=== PATIENT | female | born 1960 | race Caucasian/White ===

== ENCOUNTER 2017-02-11 10:51 | Emergency (ER) | payer MEDICAID ==
[2017-02-11] MEDS ORDERED: Ondansetron 4 MG/2 ML SDV IVPUSH ONE (11:01)
[2017-02-11] MEDS ORDERED: Sodium Chloride 0.9% 10 ML Syringe FLUSH PRN (11:01)
[2017-02-11] MEDS ORDERED: Sodium Chloride 0.9% 1,000 ML IV SCH (11:15)
--- NOTE | 2017-02-11 11:53 | EDM.PDOC ---
ED HPI GENERAL MEDICAL PROBLEM - General Chief Complaint: Syncope Stated Complaint: FELL FAINT Time Seen by Provider: 02/11/17 10:57 Source of Information: Reports: Patient History Limitations: Reports: No Limitations - History of Present Illness INITIAL COMMENTS - FREE TEXT/NARRATIVE: Patient reports having some dizziness over the last several weeks and had an appointment with her primary provider Darlene Mcclendon today, but before she could get there she did suffer full syncopal episode. She remembers walking to her daughter's house and then getting dizzy. After that she remembers waking up on the floor. She denies headache, SOB, chest pain, she does have nausea and vomiting with one episode of emesis here in the ER. She does have HTN, diabetic , depression, essential tremors, migraine headache. Surgical history includes hysterectomy, gall bladder removal, neck surgery, leg surgery. No alcohol, no smoking, does smoke marijuana on a weekly basis. Blood sugar normal on exam. Onset: Gradual Duration: Getting Worse Associated Symptoms: Reports: Nausea/Vomiting - Related Data Allergies Allergy/AdvReac Type Severity Reaction Status Date / Time SHARAD Inhibitors Allergy Cough Verified 02/11/17 12:43 codeine Allergy Headache Verified 02/11/17 12:43 ibuprofen Allergy Nausea and Verified 02/11/17 12:43 Vomiting morphine Allergy Rash Verified 02/11/17 12:43 Home Meds: Home Meds FLUoxetine [PROzac] 1 cap PO DAILY 11/21/13 [History] FLUoxetine [PROzac] 10 mg PO DAILY 11/21/13 [History] [place]-3 Fatty Acids [[place]-3] 2 cap PO BID 11/21/13 [History] Propranolol [Inderal LA 24 Hr] 1.5 tab PO DAILY 11/21/13 [History] SUMAtriptan Succinate [Imitrex] 1 tab PO ASDIRECTED PRN 11/21/13 [History] Valsartan [Diovan] 160 mg PO DAILY 11/21/13 [History] Albuterol [Proair HFA] 2 puff INH Q4HR PRN #1 inhaler 02/11/14 [Rx] Aspirin [Adult Low Dose Aspirin EC] 81 mg PO DAILY 12/24/14 [History] Hydrochlorothiazide 25 mg PO DAILY 12/24/14 [History] Omeprazole 20 mg PO DAILY 12/24/14 [History] atorvaSTATin [Lipitor] 10 mg PO BEDTIME 12/24/14 [History] tiZANidine HCl [Zanaflex] 4 mg PO TID PRN 12/24/14 [History] Past Medical History Other Genitourinary History: cervicalgia Other Neuro History: tremor Other Endocrine/Metabolic History: impaired fasting glucose - Past Surgical History Other HEENT Surgeries/Procedures: eye sx Other GI Surgeries/Procedures: colon polyps Other Neurological Surgeries/Procedures: spine surgery Other Musculoskeletal Surgeries/Procedures:: neck sx x2 Social & Family History - Tobacco Use Smoking Status *Q: Former Smoker Years of Tobacco use: 20 Month Tobacco Last Used: January 10, 2014 - Alcohol Use Days Per Week of Alcohol Use: 0 Number of Drinks Per Day: 0 Total Drinks Per Week: 0 - Recreational Drug Use Recreational Drug Use: No Drug Use in Last 12 Months: No ED ROS GENERAL - Review of Systems Review Of Systems: See Below Constitutional: Reports: No Symptoms HEENT: Reports: No Symptoms Respiratory: Reports: No Symptoms Cardiovascular: Reports: No Symptoms Endocrine: Reports: No Symptoms GI/Abdominal: Reports: Nausea, Vomiting : Reports: No Symptoms Musculoskeletal: Reports: No Symptoms Skin: Reports: No Symptoms Neurological: Reports: Syncope Psychiatric: Reports: No Symptoms Hematologic/Lymphatic: Reports: No Symptoms Immunologic: Reports: No Symptoms - Physical Exam Exam: See Below Exam Limited By: No Limitations General Appearance: Alert, WD/WN, Mild Distress Eye Exam: Bilateral Eye: EOMI, PERRL Ears: Normal TMs Nose: Normal Inspection Throat/Mouth: Normal Inspection, Normal Oropharynx Head Exam: Atraumatic, Normocephalic Neck: Normal Inspection, Supple Respiratory/Chest: No Respiratory Distress, Lungs Clear, Normal Breath Sounds Cardiovascular: Normal Peripheral Pulses, Regular Rate, Rhythm, No Edema GI/Abdominal: Normal Bowel Sounds, Soft, Non-Tender Neuro Exam (Abbreviated): Alert, Oriented, CN II-XII Intact, Normal Cognition, Other (essential tremors noted) Back Exam: Normal Inspection Extremities: Normal Inspection, Normal Range of Motion, Non-Tender, No Pedal Edema, Normal Capillary Refill Psychiatric: Normal Affect, Normal Mood Skin Exam: Warm, Dry, Intact, Normal Color Course - Orders/Labs/Meds Orders: Active Orders 24 hr Category Date Time Status C-REACTIVE PROTEIN [CHEM] Stat Lab 02/11/17 11:01 Ordered CK W CKMB [CHEM] Stat Lab 02/11/17 11:01 Ordered COMPREHENSIVE METABOLIC PN,CMP [CHEM] Stat Lab 02/11/17 11:01 Ordered LACTIC ACID [CHEM] Stat Lab 02/11/17 11:01 Ordered PRO B-TYPE NATRIUR PEPT,BNPPRO [CHEM] Stat Lab 02/11/17 11:01 Ordered TROPONIN I [CHEM] Stat Lab 02/11/17 11:01 Ordered TSH ULTRASENSITIVE [CHEM] Stat Lab 02/11/17 11:01 Ordered Sodium Chloride 0.9% @ 150 MLS/HR (1000ml) Med 02/11/17 11:15 Ordered Sodium Chloride 0.9% [Normal Saline] 1,000 ml IV ASDIRECTED Sodium Chloride 0.9% [Saline Flush] Med 02/11/17 11:01 Ordered 10 ml FLUSH ASDIRECTED PRN Saline Lock Insert [OM.PC] Routine Oth 02/11/17 11:01 Ordered Medication Orders Sodium Chloride (Normal Saline) 1,000 mls @ 150 mls/hr IV ASDIRECTED GABBY Last Admin: 02/11/17 11:34 Dose: 150 mls/hr Sodium Chloride (Saline Flush) 10 ml FLUSH ASDIRECTED PRN PRN Reason: Keep Vein Open Labs: Laboratory Tests 02/11/17 02/11/17 02/11/17 Range/Units 11:05 11:15 11:15 WBC 7.5 (4.0-10.0) x10^3/uL RBC 5.20 (4.00-5.50) x10^6/uL Hgb 14.4 D (12.0-16.0) g/dL Hct 41.9 (33.0-47.0) % MCV 80.6 (78.0-93.0) fL MCH 27.7 (26.0-32.0) pg MCHC 34.4 (32.0-36.0) g/dL RDW Coeff of Mehran 13.7 (10.0-15.0) % Plt Count 235 (130-400) x10^3/uL Neut % (Auto) 45.1 L (50.0-80.0) % Lymph % (Auto) 42.9 (25.0-50.0) % [place] % (Auto) 6.5 (2.0-11.0) % Eos % (Auto) 4.7 H (0.0-4.0) % Baso % (Auto) 0.8 (0.2-1.2) % PT (9.8-11.8) SEC INR (2.0-3.5) D-Dimer, Quantitative 0.53 (<=0.58) mg/LFEU POC Glucose 121 H (74-106) mg/dL 02/11/17 Range/Units 11:15 WBC (4.0-10.0) x10^3/uL RBC (4.00-5.50) x10^6/uL Hgb (12.0-16.0) g/dL Hct (33.0-47.0) % MCV (78.0-93.0) fL MCH (26.0-32.0) pg MCHC (32.0-36.0) g/dL RDW Coeff of Mehran (10.0-15.0) % Plt Count (130-400) x10^3/uL Neut % (Auto) (50.0-80.0) % Lymph % (Auto) (25.0-50.0) % [place] % (Auto) (2.0-11.0) % Eos % (Auto) (0.0-4.0) % Baso % (Auto) (0.2-1.2) % PT 10.1 (9.8-11.8) SEC INR 0.9 L (2.0-3.5) D-Dimer, Quantitative (<=0.58) mg/LFEU POC Glucose (74-106) mg/dL Meds: Medications Generic Name Dose Route Start Last Admin Trade Name Freq PRN Reason Stop Dose Admin Sodium Chloride 1,000 mls @ 150 mls/hr 02/11/17 11:15 02/11/17 11:34 Normal Saline IV 150 mls/hr ASDIRECTED GABBY Administration Sodium Chloride 10 ml 02/11/17 11:01 Saline Flush FLUSH ASDIRECTED PRN Keep Vein Open Discontinued Medications Generic Name Dose Route Start Last Admin Trade Name Freq PRN Reason Stop Dose Admin Ondansetron HCl 4 mg 02/11/17 11:01 02/11/17 11:34 Zofran IVPUSH 02/11/17 11:02 4 mg ONETIME ONE Administration Departure - Departure Time of Disposition: 13:35 Disposition: Home, Self-Care 01 Condition: Good Clinical Impression: Syncope - Discharge Information Instructions: Syncope, [id number], Hypertension, [id number] Forms: ED Department Discharge Additional Instructions: You need to have a cardiology appointment to rule out a cardiac cause of your syncope. Call Darlene's office to see if she will refer you to them for SYNCOPE. Darlene may want to see you first before referring you. Your tests today were negative. We will call you with results of your head CT if there is something within your head causing the syncope. If you have any further feelings of fainting, you need to come to the emergency room right away. Stay hydrated by drinking plenty of water If you have any concerns or questions please call us. - Problem List & Annotations (1) Syncope SNOMED Code(s): 737756461 Code(s): R55 - SYNCOPE AND COLLAPSE Status: Acute Priority: Low Current Visit: Yes Qualifiers: Syncope type: unspecified Qualified Code(s): R55 - Syncope and collapse - Problem List Review Problem List Initiated/Reviewed/Updated: Yes - My Orders Last 24 Hours: My Active Orders 02/11/17 11:01 C-REACTIVE PROTEIN [CHEM] Stat CK W CKMB [CHEM] Stat COMPREHENSIVE METABOLIC PN,CMP [CHEM] Stat LACTIC ACID [CHEM] Stat PRO B-TYPE NATRIUR PEPT,BNPPRO [CHEM] Stat TROPONIN I [CHEM] Stat TSH ULTRASENSITIVE [CHEM] Stat Sodium Chloride 0.9% [Saline Flush] 10 ml FLUSH ASDIRECTED PRN Saline Lock Insert [OM.PC] Routine 02/11/17 11:15 Sodium Chloride 0.9% @ 150 MLS/HR (1000ml) Sodium Chloride 0.9% [Normal Saline] 1,000 ml IV ASDIRECTED - Assessment/Plan Last 24 Hours: My Active Orders 02/11/17 11:01 C-REACTIVE PROTEIN [CHEM] Stat CK W CKMB [CHEM] Stat COMPREHENSIVE METABOLIC PN,CMP [CHEM] Stat LACTIC ACID [CHEM] Stat PRO B-TYPE NATRIUR PEPT,BNPPRO [CHEM] Stat TROPONIN I [CHEM] Stat TSH ULTRASENSITIVE [CHEM] Stat Sodium Chloride 0.9% [Saline Flush] 10 ml FLUSH ASDIRECTED PRN Saline Lock Insert [OM.PC] Routine 02/11/17 11:15 Sodium Chloride 0.9% @ 150 MLS/HR (1000ml) Sodium Chloride 0.9% [Normal Saline] 1,000 ml IV ASDIRECTED Assessment:: Syncope Hypertension Plan: You need to have a cardiology appointment to rule out a cardiac cause of your syncope. Call Darlene's office to see if she will refer you to them for SYNCOPE. Darlene may want to see you first before referring you. Your tests today were negative. We will call you with results of your head CT if there is something within your head causing the syncope. If you have any further feelings of fainting, you need to come to the emergency room right away. Stay hydrated by drinking plenty of water If you have any concerns or questions please call us.
[2017-02-11 12:21] LABS: CHLORIDE,CL 104 mmol/L (98-107); SODIUM,NA 142 mmol/L (136-145)
[2017-02-11 13:13] VITALS: BP 157/89
== END 2017-02-11 13:35 | disposition home or self-care (01) ==
LOC: VM.ED 10:51
DX: R55 Syncope and collapse (principal); I10 Essential (primary) hypertension; E11.9 Type 2 diabetes mellitus without complications; F32.9 Major depressive disorder, single episode, unspecified; G43.909 Migraine, unspecified, not intractable, without status migrainosus; Z88.5 Allergy status to narcotic agent; Z88.6 Allergy status to analgesic agent; Z88.8 Allergy status to other drugs, medicaments and biological substances; Z79.82 Long term (current) use of aspirin; Z79.899 Other long term (current) drug therapy; Z87.891 Personal history of nicotine dependence
CPT/HCPCS: 36415; 70450; 80053; 82550; 82962; 83605; 83735; 83880; 84443; 84484; 85025; 85379; 85610; 86140; 93005; 96360; 96361; 99285; J2405; J7030

== ENCOUNTER 2017-09-15 09:53 | Day surgery (SDC) | payer MEDICAID ==
[~2017-09-15 09:53] MED LIST: Lactated Ringers 1,000 ML IV SCH
[2017-09-15] MEDS ORDERED: fentaNYL 100 MCG/2 ML SDV ONE (12:41)
[2017-09-15] MEDS ORDERED: Propofol 200 MG/20 ML SDV ONE (12:41)
[2017-09-15] MEDS ORDERED: Midazolam 1 MG/ML 2 ML SDV ONE (12:54)
[2017-09-15 14:34] VITALS: BP 127/77
--- NOTE | 2017-09-15 21:18 | OR ---
COLONOSCOPY REPORT DATE OF SURGERY: 09/15/2017. REFERRING PROVIDER: Darlene Mcclendon PA-C. PRE-OPERATIVE DIAGNOSES: 1. Recent rectal bleeding on three separate occasions, most recently about one month ago. 2. History of colon polyps. Last colonoscopy on 12/26/2014 revealed seven tiny polyps, which were removed. A year prior to this, she had a larger polyp near the hepatic flexure, which was tattooed and removed. POST-OPERATIVE DIAGNOSES: 1. Several tiny sigmoid polyps were present, which appeared hyperplastic in nature. a. The 2-mm polyp x2 at 30 cm was removed with cold forceps. b. The 2-mm polyp x2 at about 20 cm was removed with cold forceps. 2. External hemorrhoidal skin tags, not acutely inflamed. PROCEDURE: Colonoscopy with polypectomy x4 using cold forceps. SURGEON: Kiko Smith M.D. ANESTHESIA: Monitored anesthesia care. BOWEL PREP: Good. DESCRIPTION OF PROCEDURE: Alicja is a 56-year-old female, who was brought to the endoscopy suite after discussing risks and benefits of the procedure. Informed consent was obtained for conscious sedation and colonoscopy with or without biopsy and/or polypectomy. We also discussed possibility of missed lesions. Pre-procedure exam was unremarkable. IV, oxygen, and monitors were placed. The patient was placed in the left lateral decubitus position. Sedation was administered and a digital rectal exam was performed, and did reveal some external hemorrhoidal skin tags, not acutely inflamed. Colonoscope was passed into the rectum and slowly advanced all the way to the cecum. Cecum was viewed and photographed. The colonoscope was slowly withdrawn and the mucosa was closed observed in a direct circumferential manner. At the distal ascending colon near the hepatic flexure, there was noted to be a previous tattooed site without any residual polypoid tissue or masses nor any inflammation. This was photographed. The transverse colon was unremarkable. The descending colon was unremarkable. The sigmoid colon, especially from 20 cm to 30 cm revealed several tiny hyperplastic- appearing polyps. Four of these were removed using cold forceps. Retroflexion was performed. Rectal mucosa was unremarkable. Scope was removed. The patient tolerated the procedure well. The patient was monitored until that baseline status. Discharge instructions were reviewed and the patient was discharged in good condition. COMPLICATIONS: None. TOTAL TIME: 22 minutes. ESTIMATED BLOOD LOSS: About 1 mL. RECOMMENDATIONS/FOLLOW-UP: We will await results of pathology report to determine ideal followup interval. We would like to kindly thank Darlene Mcclendon for this referral. DMB: 09/15/2017 14:02:51 MODL: 09/15/2017 21:09:29 /[id number]
== END 2017-09-15 14:37 | disposition home or self-care (01) ==
LOC: VM.SDS 09:53
PROVIDERS: ATTEND Family Medicine
DX: K63.5 Polyp of colon (principal); K62.5 Hemorrhage of anus and rectum; Z86.010 Personal history of colon polyps; K64.4 Residual hemorrhoidal skin tags; F33.1 Major depressive disorder, recurrent, moderate; F41.1 Generalized anxiety disorder; E11.9 Type 2 diabetes mellitus without complications; I10 Essential (primary) hypertension; E78.00 Pure hypercholesterolemia, unspecified; R25.1 Tremor, unspecified; Z87.891 Personal history of nicotine dependence; Z79.899 Other long term (current) drug therapy; Z90.49 Acquired absence of other specified parts of digestive tract; Z98.890 Other specified postprocedural states
CPT/HCPCS: 45380; 82962; J2250; J2704; J3010; J7120

== ENCOUNTER 2017-12-17 16:55 | Emergency (ER) | payer MEDICAID ==
[2017-12-17 17:10] VITALS: BP 143/67
--- NOTE | 2017-12-17 18:23 | EDM.PDOC ---
ED HPI GENERAL MEDICAL PROBLEM - General Chief Complaint: Lower Extremity Injury/Pain Stated Complaint: right ankle injury Time Seen by Provider: 12/17/17 17:07 Source of Information: Reports: Patient History Limitations: Reports: No Limitations - History of Present Illness INITIAL COMMENTS - FREE TEXT/NARRATIVE: Pt. states that she was walking down the sidewalk and twisted her R ankle. Denies any injury other than what is isolated to the R lateral ankle. No paresthesia distal to the area of injury. No pain proximal to the R lateral ankle. No knee or upper leg pain. Did not strike her head. Location: Reports: Lower Extremity, Right Quality: Reports: Dull Treatments FANCY WIRE DRAWER: Reports: Cold Therapy right lateral ankle Pain Score (Numeric/FACES): 7 - Related Data Allergies Allergy/AdvReac Type Severity Reaction Status Date / Time SHARAD Inhibitors Allergy Cough Verified 12/17/17 17:07 codeine Allergy Headache Verified 12/17/17 17:07 ibuprofen Allergy Nausea and Verified 12/17/17 17:07 Vomiting morphine Allergy Rash Verified 12/17/17 17:07 Home Meds: Home Meds [place]-3 Fatty Acids [[place]-3] 1,000 mg PO BID 11/21/13 [History] Propranolol [Inderal LA 24 Hr] 160 mg PO DAILY 11/21/13 [History] SUMAtriptan Succinate [Imitrex] 1 tab PO ASDIRECTED PRN 11/21/13 [History] Valsartan [Diovan] 80 mg PO DAILY 11/21/13 [History] Aspirin [Adult Low Dose Aspirin EC] 81 mg PO DAILY 12/24/14 [History] Hydrochlorothiazide 12.5 mg PO DAILY 12/24/14 [History] Omeprazole 20 mg PO DAILY 12/24/14 [History] atorvaSTATin [Lipitor] 10 mg PO BEDTIME 12/24/14 [History] tiZANidine HCl [Zanaflex] 4 mg PO TID PRN 12/24/14 [History] Primidone [Mysoline] 100 mg PO BID 09/07/17 [History] Vortioxetine Hydrobromide [Trintellix] 10 mg PO DAILY 09/07/17 [History] metFORMIN [Glucophage XR] 500 mg PO BID 09/07/17 [History] Past Medical History HEENT History: Reports: Cataract Cardiovascular History: Reports: High Cholesterol, Hypertension, Other (See Below) Other Cardiovascular History: palpitations Gastrointestinal History: Reports: Colon Polyp, Other (See Below) Other Gastrointestinal History: bright red rectal bleeding. hx of h pylori Other Genitourinary History: cervicalgia Musculoskeletal History: Reports: Back Pain, Chronic Neurological History: Reports: Migraines Other Neuro History: tremor Psychiatric History: Reports: Anxiety, Bipolar, Depression, Other (See Below) Other Psychiatric History: insomnia. daytime somnolence Endocrine/Metabolic History: Reports: Diabetes, Type II Other Endocrine/Metabolic History: impaired fasting glucose - Past Surgical History HEENT Surgical History: Reports: Eye Surgery Other HEENT Surgeries/Procedures: eye sx GI Surgical History: Reports: Cholecystectomy, Colonoscopy Other GI Surgeries/Procedures: colon polyps Female Surgical History: Reports: Hysterectomy, Tubal Ligation Other Neurological Surgeries/Procedures: spine surgery Other Musculoskeletal Surgeries/Procedures:: neck sx x2. trigger finger release Oncologic Surgical History: Reports: Biopsy of Breast Social & Family History - Tobacco Use Smoking Status *Q: Former Smoker Used Tobacco, but Quit: Yes Month/Year Tobacco Last Used: 2013 - Recreational Drug Use Recreational Drug Use: Yes Drug Use in Last 12 Months: Yes Recreational Drug Type: Reports: Marijuana/Hashish Recreational Drug Use Frequency: Socially Review of Systems - Review of Systems Review Of Systems: See Below Constitutional: Reports: No Symptoms Musculoskeletal: Reports: Leg Pain, Joint Pain (R lateral ankle.) Skin: Reports: No Symptoms Neurological: Reports: No Symptoms ED EXAM, GENERAL - Physical Exam Exam: See Below Exam Limited By: No Limitations General Appearance: Alert, WD/WN, No Apparent Distress Throat/Mouth: Normal Inspection, Normal Lips, Normal Teeth, Normal Gums, Normal Oropharynx, Normal Voice, No Airway Compromise Head: Atraumatic, Normocephalic Neck: Normal Inspection, Supple, Non-Tender, Full Range of Motion Respiratory/Chest: No Respiratory Distress Peripheral Pulses: 4+: Posterior Tibial (L), Posterior Tibial (R), Dorsalis Pedis (L), Dorsalis Pedis (R) Extremities: Leg Pain, Limited Range of Motion, Other (swelling to lateral aspect of R ankle) Course - Vital Signs Last Recorded V/S: Last Vital Signs Temp 37.3 C 12/17/17 17:07 Pulse 72 12/17/17 17:07 Resp 18 12/17/17 17:07 BP 143/67 H 12/17/17 17:07 Pulse Ox 93 L 12/17/17 17:07 - Orders/Labs/Meds Orders: Active Orders 24 hr Category Date Time Status Ankle 2V Rt [CR] Stat Exams 12/17/17 17:22 Taken - Radiology Interpretation Free Text/Narrative:: plain film radiographs of the ankle were negative. Departure - Departure Time of Disposition: 16:15 Disposition: Home, Self-Care 01 Clinical Impression: Ankle sprain - Discharge Information Instructions: Ankle Sprain, [id number] Referrals: Darlene Mcclendon PA-C [Primary Care Provider] - Forms: ED Department Discharge Additional Instructions: Use stirrup splint and sharad wrap for the next several days. Ice ankle for 15 min every 1-2 hours. Use crutches to help with getting around. Elevate ankle above heart as much as possible. It is important to get it has high as possible. - My Orders Last 24 Hours: My Active Orders 12/17/17 17:22 Ankle 2V Rt [CR] Stat - Assessment/Plan Last 24 Hours: My Active Orders 12/17/17 17:22 Ankle 2V Rt [CR] Stat
== END 2017-12-17 18:20 | disposition home or self-care (01) ==
LOC: VM.ED 16:55
DX: S93.401A Sprain of unspecified ligament of right ankle, initial encounter (principal); I10 Essential (primary) hypertension; E11.9 Type 2 diabetes mellitus without complications; Z88.5 Allergy status to narcotic agent; Z88.8 Allergy status to other drugs, medicaments and biological substances; Z88.6 Allergy status to analgesic agent; Z79.899 Other long term (current) drug therapy; Z87.891 Personal history of nicotine dependence; X50.1XXA Overexertion from prolonged static or awkward postures, initial encounter; Y93.01 Activity, walking, marching and hiking
CPT/HCPCS: 73600-RT; 99283

== ENCOUNTER 2018-10-17 16:12 | Emergency (ER) | payer MEDICAID ==
[2018-10-17] MEDS ORDERED: Ondansetron 4 MG/2 ML SDV IVPUSH ONE (16:31)
[2018-10-17] MEDS ORDERED: Morphine 4 MG/ML Syringe IVPUSH ONE (16:31)
[2018-10-17] MEDS ORDERED: Sodium Chloride 0.9% 10 ML Syringe FLUSH PRN (16:31)
[2018-10-17] MEDS ORDERED: Sodium Chloride 0.9% 1,000 ML IV ONE (16:31)
[2018-10-17 16:55] VITALS: BP 115/86
[2018-10-17 17:02] LABS: CHLORIDE,CL 99 mmol/L (98-107); SODIUM,NA 141 mmol/L (136-145)
[2018-10-17 17:04] LABS: ANION GAP 11.8 mmol/L (10-20)
[2018-10-17] MEDS ORDERED: Iopamidol 612 MG/ML 100 ML Bottle IVPUSH ONE (17:20)
[2018-10-17] MEDS ORDERED: HYDROmorphone 1 MG/ML Syringe IVPUSH ONE (17:36)
[2018-10-17] MEDS ORDERED: Prochlorperazine 10 MG/2 ML SDV IV ONE (18:11)
--- NOTE | 2018-10-17 18:13 | CT ---
[id number] CT/CT Abdomen Pelvis W IV EXAM: CT Abdomen Pelvis W IV CLINICAL DATA: LOWER ABD PAIN COMPARISON STUDY: None. FINDINGS: Lung bases are clear. Generalized hypodensity of the liver consistent with hepatic steatosis. The gallbladder surgically absent. The spleen, pancreas, adrenal glands and kidneys are unremarkable. Differential wall thickening of the rectum with mild fat stranding. The appendix is visualized and appears normal. Colonic diverticulosis without evidence of acute diverticulitis. No lymphadenopathy, free fluid, or pneumoperitoneum. Scattered changes of spondylosis the spine. No fracture or osseous lesion. IMPRESSION: 1. Circumferential wall thickening of the rectum with mild surrounding fat stranding. These findings could be seen with uncomplicated proctitis. Correlate clinically. Abdifatah Tobar DO 10/17/18 1845 Thank you for allowing us to participate in the care of your patient.
--- NOTE | 2018-10-17 18:14 | CR ---
[id number] RAD/RAD Chest PA And Lateral EXAM: RAD Chest PA And Lateral INDICATION: COUGH SOB COMPARISON: None. DISCUSSION: Cardiomediastinal silhouette is normal in size and contour. No infiltrate, effusion, pneumothorax, or edema. IMPRESSION: No acute cardiopulmonary abnormality. Abdifatah Tobar DO 10/17/18 1812 Thank you for allowing us to participate in the care of your patient.
[2018-10-17] MEDS ORDERED: Piperacillin/Tazobactam 3.375 GM in Sodium Chloride 0.9% 100 ML IV ONE (18:23)
[2018-10-17] MEDS ORDERED: Metoclopramide 10 MG/2 ML SDV IVPUSH ONE (18:39)
--- NOTE | 2018-10-18 02:05 | EDM.PDOC ---
ED HPI GENERAL MEDICAL PROBLEM - General Chief Complaint: Abdominal Pain Stated Complaint: ABDOMINAL PAIN Time Seen by Provider: 10/17/18 16:20 Source of Information: Reports: Patient History Limitations: Reports: No Limitations - History of Present Illness INITIAL COMMENTS - FREE TEXT/NARRATIVE: PtElliot presents to ER with complaints of lower abdominal pain, nausea, vomiting, and diarrhea that started earlier today. She states that she is not able to hold down fluids. She complains of weakness and fatigue. She is very chilled but has not been checking her temp at home. She has a history of tremor that are worse tonight since she has been ill. Denies any blood in stools. She states that she is not sexually active and denies intrumentation of her rectum. She denies any trauma. She states that she has had 2 loose stools tonight. Denies and travel outside the [place] recently. She denies any consumption of untreated water. Denies any history of ulcerative colitis or other GI disease. Denies any dysuria, frequency or urgency. She denies any significant shortness of breath. Onset Date: 10/17/18 Location: Reports: Abdomen Associated Symptoms: Reports: Loss of Appetite, Nausea/Vomiting Lower Abdomen Pain Score (Numeric/FACES): 3 - Related Data Allergies Allergy/AdvReac Type Severity Reaction Status Date / Time morphine Allergy Rash Verified 10/17/18 16:49 SHARAD Inhibitors AdvReac Cough Verified 10/17/18 17:30 codeine AdvReac Headache Verified 10/17/18 17:30 ibuprofen AdvReac Nausea and Verified 10/17/18 17:30 Vomiting Home Meds: Home Meds [place]-3 Fatty Acids [[place]-3] 1,000 mg PO BID 11/21/13 [History] Propranolol [Inderal LA 24 Hr] 160 mg PO DAILY 11/21/13 [History] SUMAtriptan Succinate [Imitrex] 1 tab PO ASDIRECTED PRN 11/21/13 [History] Valsartan [Diovan] 80 mg PO DAILY 11/21/13 [History] Aspirin [Adult Low Dose Aspirin EC] 81 mg PO DAILY 12/24/14 [History] Hydrochlorothiazide 12.5 mg PO DAILY 12/24/14 [History] Omeprazole 20 mg PO DAILY 12/24/14 [History] atorvaSTATin [Lipitor] 10 mg PO BEDTIME 12/24/14 [History] tiZANidine HCl [Zanaflex] 4 mg PO TID PRN 12/24/14 [History] Primidone [Mysoline] 100 mg PO BID 09/07/17 [History] Vortioxetine Hydrobromide [Trintellix] 10 mg PO DAILY 09/07/17 [History] metFORMIN [Glucophage XR] 500 mg PO BID 09/07/17 [History] Past Medical History HEENT History: Reports: Cataract Cardiovascular History: Reports: High Cholesterol, Hypertension, Other (See Below) Other Cardiovascular History: palpitations Gastrointestinal History: Reports: Colon Polyp, Other (See Below) Other Gastrointestinal History: bright red rectal bleeding. hx of h pylori Other Genitourinary History: cervicalgia Musculoskeletal History: Reports: Back Pain, Chronic Neurological History: Reports: Migraines Other Neuro History: tremor Psychiatric History: Reports: Anxiety, Bipolar, Depression, Other (See Below) Other Psychiatric History: insomnia. daytime somnolence Endocrine/Metabolic History: Reports: Diabetes, Type II Other Endocrine/Metabolic History: impaired fasting glucose - Past Surgical History HEENT Surgical History: Reports: Eye Surgery Other HEENT Surgeries/Procedures: eye sx GI Surgical History: Reports: Cholecystectomy, Colonoscopy Other GI Surgeries/Procedures: colon polyps Female Surgical History: Reports: Hysterectomy, Tubal Ligation Other Neurological Surgeries/Procedures: spine surgery Other Musculoskeletal Surgeries/Procedures:: neck sx x2. trigger finger release Oncologic Surgical History: Reports: Biopsy of Breast Social & Family History - Tobacco Use Smoking Status *Q: Unknown Ever Smoked - Recreational Drug Use Recreational Drug Use: No ED ROS GENERAL - Review of Systems Review Of Systems: See Below Constitutional: Reports: No Symptoms HEENT: Reports: No Symptoms Respiratory: Reports: No Symptoms Cardiovascular: Reports: No Symptoms Endocrine: Reports: No Symptoms GI/Abdominal: Reports: Abdominal Pain, Diarrhea, Flatus, Nausea, Vomiting. Denies: Bloody Stool, Constipation, Distension, Hematemesis, Hematochezia, Melena, Mucous in Stool : Reports: No Symptoms Musculoskeletal: Reports: No Symptoms Skin: Reports: No Symptoms Neurological: Reports: No Symptoms Psychiatric: Reports: No Symptoms Hematologic/Lymphatic: Reports: No Symptoms ED EXAM, GENERAL - Physical Exam Exam: See Below Exam Limited By: No Limitations General Appearance: Alert, WD/WN, No Apparent Distress Eye Exam: Bilateral Eye: EOMI, PERRL Ears: Normal External Exam, Normal Canal, Hearing Grossly Normal, Normal TMs Ear Exam: Bilateral Ear: Auricle Normal, Canal Normal, TM normal Nose: Normal Inspection, Normal Mucosa, No Blood Throat/Mouth: Normal Inspection, Normal Lips, Normal Teeth, Normal Gums, Normal Oropharynx, Normal Voice, No Airway Compromise Head: Atraumatic, Normocephalic Neck: Normal Inspection, Supple, Non-Tender, Full Range of Motion Respiratory/Chest: No Respiratory Distress, Lungs Clear, Normal Breath Sounds, No Accessory Muscle Use, Chest Non-Tender Cardiovascular: Normal Peripheral Pulses, Regular Rate, Rhythm, No Edema, No Gallop, No JVD, No Murmur, No Rub Peripheral Pulses: 3+: Radial (L) GI/Abdominal: Normal Bowel Sounds, Soft, Guarding, Tender (tender in lower quadrants, particularly on the left). No: No Distention, No Mass, Rigid, Rebound (Female) Exam: Deferred Rectal (Female) Exam: No: Deferred Extremities: Normal Inspection, Normal Range of Motion, Non-Tender, No Pedal Edema, Normal Capillary Refill Neurological: Alert, Oriented, CN II-XII Intact, Normal Cognition, Normal Gait, Normal Reflexes, No Motor/Sensory Deficits Psychiatric: Normal Affect, Normal Mood Skin Exam: Warm, Dry, Intact, Normal Color Course - Vital Signs Last Recorded V/S: Last Vital Signs Temp 35.6 C 10/17/18 16:15 Pulse 75 10/17/18 16:15 Resp 18 10/17/18 16:15 BP 115/86 10/17/18 16:15 Pulse Ox 98 10/17/18 16:15 - Orders/Labs/Meds Orders: Active Orders 24 hr Category Date Time Status Peripheral IV Insertion Adult [OM.PC] Routine Oth 10/17/18 16:31 Ordered Labs: Laboratory Tests 10/17/18 10/17/18 10/17/18 Range/Units 16:25 16:25 16:25 WBC 8.0 (4.0-10.0) x10^3/uL RBC 5.72 H (4.00-5.50) x10^6/uL Hgb 15.5 (12.0-16.0) g/dL Hct 45.9 (33.0-47.0) % MCV 80.2 (78.0-93.0) fL MCH 27.1 (26.0-32.0) pg MCHC 33.8 (32.0-36.0) g/dL RDW Coeff of Mehran 13.6 (10.0-15.0) % Plt Count 329 D (130-400) x10^3/uL Neut % (Auto) 39.2 L (50.0-80.0) % Lymph % (Auto) 49.5 (25.0-50.0) % [place] % (Auto) 7.5 (2.0-11.0) % Eos % (Auto) 3.1 (0.0-4.0) % Baso % (Auto) 0.7 (0.2-1.2) % PT 10.4 (10.0-12.8) SEC INR 0.9 L (2.0-3.5) Sodium 141 (136-145) mmol/L Potassium 3.8 (3.5-5.1) mmol/L Chloride 99 (98-107) mmol/L Carbon Dioxide 34 H (21-32) mmol/L Anion Gap 11.8 (10-20) mmol/L BUN 13 (7-18) mg/dL Creatinine 0.9 (0.55-1.02) mg/dL Est Cr Clr Drug Dosing 55.68 mL/min Estimated GFR (MDRD) > 60 Glucose 134 H (74-106) mg/dL Lactic Acid (0.4-2.0) mmol/L Calcium 9.7 (8.5-10.1) mg/dL Corrected Calcium 9.62 (8.5-10.1) mg/dL Phosphorus 3.5 (2.6-4.7) mg/dL Magnesium 1.8 (1.8-2.4) mg/dL Total Bilirubin 0.4 (0.2-1.0) mg/dL AST 29 (15-37) U/L ALT 59 (14-59) U/L Alkaline Phosphatase 81 (46-116) U/L C-Reactive Protein < 0.2 (<=0.9) mg/dL Total Protein 7.9 (6.4-8.2) g/dL Albumin 4.1 (3.4-5.0) g/dL Globulin 3.8 Albumin/Globulin Ratio 1.08 Urine Color (YELLOW) Urine Appearance (CLEAR) Urine pH (5.0-8.0) Ur Specific [place] Urine Protein (NEGATIVE) mg/dL Urine Glucose (UA) (NEGATIVE) mg/dL Urine Ketones (NEGATIVE) mg/dL Urine Occult Blood (NEGATIVE) Urine Nitrite (NEGATIVE) Urine Bilirubin (NEGATIVE) Urine Urobilinogen (0.2) EU/dL Ur Leukocyte Esterase (NEGATIVE) Urine RBC (NOT SEEN) /HPF Urine WBC (NOT SEEN) /HPF Ur Squamous Epith Cells (NEGATIVE) /HPF Urine Bacteria (NEGATIVE) /HPF Urine Mucus (NEGATIVE) /LPF 10/17/18 10/17/18 Range/Units 16:25 16:25 WBC (4.0-10.0) x10^3/uL RBC (4.00-5.50) x10^6/uL Hgb (12.0-16.0) g/dL Hct (33.0-47.0) % MCV (78.0-93.0) fL MCH (26.0-32.0) pg MCHC (32.0-36.0) g/dL RDW Coeff of Mehran (10.0-15.0) % Plt Count (130-400) x10^3/uL Neut % (Auto) (50.0-80.0) % Lymph % (Auto) (25.0-50.0) % [place] % (Auto) (2.0-11.0) % Eos % (Auto) (0.0-4.0) % Baso % (Auto) (0.2-1.2) % PT (10.0-12.8) SEC INR (2.0-3.5) Sodium (136-145) mmol/L Potassium (3.5-5.1) mmol/L Chloride (98-107) mmol/L Carbon Dioxide (21-32) mmol/L Anion Gap (10-20) mmol/L BUN (7-18) mg/dL Creatinine (0.55-1.02) mg/dL Est Cr Clr Drug Dosing mL/min Estimated GFR (MDRD) Glucose (74-106) mg/dL Lactic Acid 1.7 (0.4-2.0) mmol/L Calcium (8.5-10.1) mg/dL Corrected Calcium (8.5-10.1) mg/dL Phosphorus (2.6-4.7) mg/dL Magnesium (1.8-2.4) mg/dL Total Bilirubin (0.2-1.0) mg/dL AST (15-37) U/L ALT (14-59) U/L Alkaline Phosphatase (46-116) U/L C-Reactive Protein (<=0.9) mg/dL Total Protein (6.4-8.2) g/dL Albumin (3.4-5.0) g/dL Globulin Albumin/Globulin Ratio Urine Color Yellow (YELLOW) Urine Appearance Clear (CLEAR) Urine pH 6.5 (5.0-8.0) Ur Specific [place] 1.020 Urine Protein 30 H (NEGATIVE) mg/dL Urine Glucose (UA) Negative (NEGATIVE) mg/dL Urine Ketones Trace H (NEGATIVE) mg/dL Urine Occult Blood Trace-intact H (NEGATIVE) Urine Nitrite Negative (NEGATIVE) Urine Bilirubin Small H (NEGATIVE) Urine Urobilinogen 0.2 (0.2) EU/dL Ur Leukocyte Esterase Negative (NEGATIVE) Urine RBC 0-5 (NOT SEEN) /HPF Urine WBC 0-5 (NOT SEEN) /HPF Ur Squamous Epith Cells Moderate H (NEGATIVE) /HPF Urine Bacteria Not seen (NEGATIVE) /HPF Urine Mucus Few H (NEGATIVE) /LPF Meds: Medications Discontinued Medications Generic Name Dose Route Start Last Admin Trade Name Freq PRN Reason Stop Dose Admin Hydromorphone HCl 0.5 mg 10/17/18 17:36 10/17/18 17:40 Dilaudid IVPUSH 10/17/18 17:37 0.5 mg ONETIME ONE Administration Sodium Chloride 1,000 mls @ 1,000 mls/hr 10/17/18 16:31 10/17/18 16:36 Normal Saline IV 10/17/18 17:30 1,000 mls/hr .BOLUS ONE Administration Piperacillin Sod/Tazobactam 100 mls @ 200 mls/hr 10/17/18 18:23 10/17/18 18: 37 Sod 3.375 gm/ Sodium Chloride IV 10/17/18 18:52 200 mls/hr STAT ONE Administration Iopamidol 100 ml 10/17/18 17:20 10/17/18 17:27 Isovue-300 (61%) IVPUSH 10/17/18 17:21 100 ml ONETIME ONE Administration Metoclopramide HCl 5 mg 10/17/18 18:39 10/17/18 19:11 Reglan IVPUSH 10/17/18 18:40 5 mg ONETIME ONE Administration Morphine Sulfate 4 mg 10/17/18 16:31 10/17/18 19:37 Morphine IVPUSH 10/17/18 16:32 Not Given ONETIME ONE Ondansetron HCl 4 mg 10/17/18 16:31 10/17/18 16:38 Zofran IVPUSH 10/17/18 16:32 4 mg ONETIME ONE Administration Prochlorperazine Edisylate 5 mg 10/17/18 18:11 Compazine IV 10/17/18 18:12 ONETIME ONE Sodium Chloride 10 ml 10/17/18 16:31 Saline Flush FLUSH ASDIRECTED PRN Keep Vein Open - Radiology Interpretation Free Text/Narrative:: CT abdomen and pelvis with IV contast obtained showing wall thickening and some stranding of the rectum consistent with possible proctitis. No other etiology for discomfort noted. There was evidence with diverticulosis without diverticulitis. Appendix normal as visualized. - Re-Assessments/Exams Free Text/Narrative Re-Assessment/Exam: Pt. was given a liter of normal saline, dilaudid 0.5mg IV, and zofran 4 mg IV. Reported significant improvement in discomfort. She was still nauseated so was given 5 mg reglan IV. On obtaining her CT result she was given zosyn 3.375gm IV. She remained stable in my care in ER. Departure - Departure Time of Disposition: 19:32 Disposition: Home, Self-Care 01 Clinical Impression: Gastroenteritis, Proctitis - Discharge Information Instructions: Proctitis Referrals: Darlene Mcclendon PA-C [Primary Care Provider] - Forms: ED Department Discharge Additional Instructions: Flagyl 500mg 1 three times daily for 10 days Cipro 500mg 1 twice daily for 10 days Drink plenty of fluids Recheck in clinic in 10-14 days - Problem List Review Problem List Initiated/Reviewed/Updated: Yes - My Orders Last 24 Hours: My Active Orders 10/17/18 16:31 Peripheral IV Insertion Adult [OM.PC] Routine - Assessment/Plan Last 24 Hours: My Active Orders 10/17/18 16:31 Peripheral IV Insertion Adult [OM.PC] Routine Plan: This illness is likely viral in origin, but given her radiographic finding we will start her on antibiotics. Flagyl 500mg 1 three times daily for 10 days Cipro 500mg 1 twice daily for 10 days Drink plenty of fluids Recheck in clinic in 10-14 days
== END 2018-10-17 19:32 | disposition home or self-care (01) ==
LOC: VM.ED 16:12
DX: K52.9 Noninfective gastroenteritis and colitis, unspecified (principal); K62.89 Other specified diseases of anus and rectum; I10 Essential (primary) hypertension; E11.9 Type 2 diabetes mellitus without complications; Z88.5 Allergy status to narcotic agent; Z88.8 Allergy status to other drugs, medicaments and biological substances; Z79.899 Other long term (current) drug therapy; Z79.82 Long term (current) use of aspirin
CPT/HCPCS: 36415; 71046; 74177; 80053; 81001; 83605; 83735; 84100; 85025; 85610; 86140; 96361; 96365; 96375; 99284; J1170; J2405; J2543; J2765; J7030; J7050; Q9967

== ENCOUNTER 2018-10-18 16:20 | Emergency (ER) | payer MEDICAID ==
--- NOTE | 2018-10-18 16:24 | EDM.PDOC ---
ED HPI GENERAL MEDICAL PROBLEM - General Chief Complaint: Abdominal Pain Stated Complaint: ABDOMINAL PAIN,DIARRHEA,VOMITING Time Seen by Provider: 10/18/18 16:22 Source of Information: Reports: Patient, Old Records, Provider, RN, RN Notes Reviewed History Limitations: Reports: No Limitations - History of Present Illness INITIAL COMMENTS - FREE TEXT/NARRATIVE: Patient was sent to this ED after being seen in the clinic as Aniket for the evaluation of abdominal pain. Patient was seen in this ED last evening for abdominal pain, N/V, and diarrhea. CT of Abd/Pelvis showed possible uncomplicated proctitis. Patient was appropriately care for and was started on IV abx therapy and sent home on PO antibiotics. 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 She presented to the clinic today and it was felt the patient was too sick for the clinic and needed possible transfer to a higher level of care. Patient states her pain is in the lower abdominal. She had 3 bile emesis today and continues feeling nauseated. She has not been able to hold down po fluids. No fevers or chills. Denies any chest pain or SOB. Patient is opioid naive. She feels somewhat week. Otherwise, no complaints. Lower Abdomen Pain Score (Numeric/FACES): 7 - Related Data Allergies Allergy/AdvReac Type Severity Reaction Status Date / Time morphine Allergy Rash Verified 10/18/18 17:28 SHARAD Inhibitors AdvReac Cough Verified 10/18/18 17:28 codeine AdvReac Headache Verified 10/18/18 17:28 ibuprofen AdvReac Nausea and Verified 10/18/18 17:28 Vomiting Home Meds: Home Meds [place]-3 Fatty Acids [[place]-3] 1,000 mg PO BID 11/21/13 [History] Propranolol [Inderal LA 24 Hr] 160 mg PO DAILY 11/21/13 [History] SUMAtriptan Succinate [Imitrex] 1 tab PO ASDIRECTED PRN 11/21/13 [History] Valsartan [Diovan] 80 mg PO DAILY 11/21/13 [History] Aspirin [Adult Low Dose Aspirin EC] 81 mg PO DAILY 12/24/14 [History] Hydrochlorothiazide 12.5 mg PO DAILY 12/24/14 [History] Omeprazole 20 mg PO DAILY 12/24/14 [History] atorvaSTATin [Lipitor] 10 mg PO BEDTIME 12/24/14 [History] tiZANidine HCl [Zanaflex] 4 mg PO TID PRN 12/24/14 [History] Primidone [Mysoline] 100 mg PO BID 09/07/17 [History] Vortioxetine Hydrobromide [Trintellix] 10 mg PO DAILY 09/07/17 [History] metFORMIN [Glucophage XR] 500 mg PO BID 09/07/17 [History] Past Medical History HEENT History: Reports: Cataract Cardiovascular History: Reports: High Cholesterol, Hypertension, Other (See Below) Other Cardiovascular History: palpitations Gastrointestinal History: Reports: Colon Polyp, Other (See Below) Other Gastrointestinal History: bright red rectal bleeding. hx of h pylori Other Genitourinary History: cervicalgia Musculoskeletal History: Reports: Back Pain, Chronic Neurological History: Reports: Migraines Other Neuro History: tremor Psychiatric History: Reports: Anxiety, Bipolar, Depression, Other (See Below) Other Psychiatric History: insomnia. daytime somnolence Endocrine/Metabolic History: Reports: Diabetes, Type II Other Endocrine/Metabolic History: impaired fasting glucose - Past Surgical History HEENT Surgical History: Reports: Eye Surgery Other HEENT Surgeries/Procedures: eye sx GI Surgical History: Reports: Cholecystectomy, Colonoscopy Other GI Surgeries/Procedures: colon polyps Female Surgical History: Reports: Hysterectomy, Tubal Ligation Other Neurological Surgeries/Procedures: spine surgery Other Musculoskeletal Surgeries/Procedures:: neck sx x2. trigger finger release Oncologic Surgical History: Reports: Biopsy of Breast ED ROS GENERAL - Review of Systems Review Of Systems: See Below Constitutional: Denies: Fever, Chills Respiratory: Denies: Shortness of Breath, Cough Cardiovascular: Denies: Chest Pain, Palpitations GI/Abdominal: Reports: Abdominal Pain, Diarrhea, Nausea, Vomiting Skin: Reports: No Symptoms Neurological: Reports: No Symptoms ED EXAM, GI/ABD - Physical Exam Exam: See Below Exam Limited By: No Limitations General Appearance: Alert, No Apparent Distress Respiratory/Chest: No Respiratory Distress, Lungs Clear, Normal Breath Sounds Cardiovascular: Normal Peripheral Pulses, Regular Rate, Rhythm GI/Abdominal Exam: Tender (lower bilateral), Abnormal Bowel Sounds (Hyperactive) . No: Guarding, Rigid, Rebound Neurological: Alert, Oriented Skin Exam: Warm, Dry, Intact, Normal Color Course - Vital Signs Last Recorded V/S: Last Vital Signs Temp 36.7 C 10/18/18 16:25 Pulse 64 10/18/18 16:25 Resp 18 10/18/18 16:25 BP 161/88 H 10/18/18 16:25 Pulse Ox 95 10/18/18 16:25 - Orders/Labs/Meds Orders: Active Orders 24 hr Category Date Time Status LACTIC ACID [CHEM] Stat Lab 10/18/18 16:47 Received Sodium Chloride 0.9% [Saline Flush] Med 10/18/18 16:32 Active 10 ml FLUSH ASDIRECTED PRN Peripheral IV Insertion Adult [OM.PC] Routine Oth 10/18/18 16:32 Ordered Medication Orders Sodium Chloride (Saline Flush) 10 ml FLUSH ASDIRECTED PRN PRN Reason: Keep Vein Open Labs: Laboratory Tests 10/18/18 Range/Units 16:47 Amylase 63 (25-115) U/L Meds: Medications Generic Name Dose Route Start Last Admin Trade Name Freq PRN Reason Stop Dose Admin Sodium Chloride 10 ml 10/18/18 16:32 Saline Flush FLUSH ASDIRECTED PRN Keep Vein Open Discontinued Medications Generic Name Dose Route Start Last Admin Trade Name Freq PRN Reason Stop Dose Admin Hydromorphone HCl 0.5 mg 10/18/18 16:38 10/18/18 16:49 Dilaudid IVPUSH 10/18/18 16:39 0.5 mg ONETIME ONE Administration Sodium Chloride 1,000 mls @ 999 mls/hr 10/18/18 16:32 10/18/18 16:38 Normal Saline IV 10/18/18 17:32 999 mls/hr ONETIME ONE Administration Iopamidol 100 ml 10/18/18 16:45 10/18/18 16:55 Isovue-300 (61%) IVPUSH 10/18/18 16:46 100 ml ONETIME ONE Administration Morphine Sulfate 4 mg 10/18/18 16:32 Morphine IVPUSH 10/18/18 16:33 ONETIME ONE Prochlorperazine Edisylate 10 mg 10/18/18 16:38 10/18/18 16:46 Compazine IV 10/18/18 16:39 10 mg ONETIME ONE Administration - Radiology Interpretation Free Text/Narrative:: CT Abd/Pelvis with IV contrast: Nonspecific mild small bowel distention See scanned report in EMR for details CT Results Date: 05/08/19 CT Results Time: 17:28 Departure - Departure Time of Disposition: 17:51 Disposition: Refer to Observation Condition: Good Clinical Impression: Dehydration Abdominal pain Qualifiers: Abdominal location: lower abdomen, unspecified Qualified Code(s): R10.30 - Lower abdominal pain, unspecified Nausea & vomiting Qualifiers: Vomiting type: bilious vomiting Qualified Code(s): R11.14 - Bilious vomiting - Discharge Information *PRESCRIPTION DRUG MONITORING PROGRAM REVIEWED*: Not Applicable *COPY OF PRESCRIPTION DRUG MONITORING REPORT IN PATIENT EDUARDO: Not Applicable ED Communication - ED Communication Date/Time Date: 10/18/18 Time Called: 17:47 - Discussed Case With (1) Discussed Case With (1): Outpatient Provider Person/s Notified (1): Cayden Grant - Problem List & Annotations (1) Abdominal pain SNOMED Code(s): 21146170 Code(s): R10.9 - UNSPECIFIED ABDOMINAL PAIN Status: Acute Priority: Medium Current Visit: Yes Onset Date: ~10/17/18 Qualifiers: Abdominal location: lower abdomen, unspecified Qualified Code(s): R10.30 - Lower abdominal pain, unspecified (2) Dehydration SNOMED Code(s): 24345290 Code(s): E86.0 - DEHYDRATION Status: Acute Priority: Medium Current Visit: Yes Onset Date: ~10/18/18 (3) Nausea & vomiting SNOMED Code(s): 28336180 Code(s): R11.2 - NAUSEA WITH VOMITING, UNSPECIFIED Status: Acute Current Visit: Yes Onset Date: ~10/18/18 Qualifiers: Vomiting type: bilious vomiting Qualified Code(s): R11.14 - Bilious vomiting - Problem List Review Problem List Initiated/Reviewed/Updated: Yes - My Orders Last 24 Hours: My Active Orders 10/18/18 16:32 Sodium Chloride 0.9% [Saline Flush] 10 ml FLUSH ASDIRECTED PRN Peripheral IV Insertion Adult [OM.PC] Routine 10/18/18 16:47 LACTIC ACID [CHEM] Stat - Assessment/Plan Admission H&P: Please use this note as an admission H&P Last 24 Hours: My Active Orders 10/18/18 16:32 Sodium Chloride 0.9% [Saline Flush] 10 ml FLUSH ASDIRECTED PRN Peripheral IV Insertion Adult [OM.PC] Routine 10/18/18 16:47 LACTIC ACID [CHEM] Stat Assessment:: Abdominal Pain N/V Diarrhea Plan: Case discussed with Dr. Grant. Patient will be admitted observation. Will start IV Cipro and IV Flagyl. IVF for hydration. IV antiemetics and pain meds. No concerns for PT/OT. Patient is a full code. I do not anticipate patient will be admitted >48 hours. Patient does wish to be transferred to a higher level of care. Patient agrees with admission and wishes to proceed.
[2018-10-18] MEDS ORDERED: Sodium Chloride 0.9% 10 ML Syringe FLUSH PRN (16:32)
[2018-10-18] MEDS ORDERED: Morphine 4 MG/ML Syringe IVPUSH ONE (16:32)
[2018-10-18] MEDS: Sodium Chloride 0.9% 1,000 ML IV ONE (16:38)
[2018-10-18] MEDS: Prochlorperazine 10 MG/2 ML SDV IV ONE (16:46)
[2018-10-18] MEDS: HYDROmorphone 1 MG/ML Syringe IVPUSH ONE (16:49)
[2018-10-18] MEDS: Iopamidol 612 MG/ML 100 ML Bottle IVPUSH ONE (16:55)
--- NOTE | 2018-10-18 17:32 | CT ---
[id number] CT/CT Abdomen Pelvis W IV EXAM: CT Abdomen Pelvis W IV CLINICAL DATA: LOWER ABDOMINAL PAIN COMPARISON: CORRELATION IS MADE WITH THE EXAM OF OCTOBER 17, 2018. FINDINGS: There is nonspecific mild small bowel dilatation. There is uncomplicated moderate colonic diverticular disease. The uterus and ovaries appear to have been removed. There is no evidence of appendicitis. The appendix appears normal. There is no free air or free fluid. The gallbladder has been removed. The liver and spleen, kidneys and adrenals, pancreas and aorta show no acute abnormalities. IMPRESSION: NONSPECIFIC MILD SMALL BOWEL DISTENTION. Macario Lee MD 10/18/18 [id number] Thank you for allowing us to participate in the care of your patient.
[2018-10-18 17:38] VITALS: BP 161/88
== END 2018-10-18 18:00 | disposition other institution (70) ==
LOC: VM.ED 16:20
DX: E86.0 Dehydration (principal); R10.30 Lower abdominal pain, unspecified; R11.2 Nausea with vomiting, unspecified; I10 Essential (primary) hypertension; E78.00 Pure hypercholesterolemia, unspecified; F31.9 Bipolar disorder, unspecified; F41.9 Anxiety disorder, unspecified; Z79.82 Long term (current) use of aspirin; Z88.5 Allergy status to narcotic agent; Z88.8 Allergy status to other drugs, medicaments and biological substances; Z88.6 Allergy status to analgesic agent; Z79.899 Other long term (current) drug therapy
CPT/HCPCS: 36415; 74177; 82150; 83605; 96361; 96374; 96375; 99284-25; J0780; J1170; J7030; Q9967

== ENCOUNTER 2018-10-18 17:46 | Observation (INO) | payer MEDICAID ==
--- NOTE | 2018-10-18 17:32 | CT ---
[id number] CT/CT Abdomen Pelvis W IV EXAM: CT Abdomen Pelvis W IV CLINICAL DATA: LOWER ABDOMINAL PAIN COMPARISON: CORRELATION IS MADE WITH THE EXAM OF OCTOBER 17, 2018. FINDINGS: There is nonspecific mild small bowel dilatation. There is uncomplicated moderate colonic diverticular disease. The uterus and ovaries appear to have been removed. There is no evidence of appendicitis. The appendix appears normal. There is no free air or free fluid. The gallbladder has been removed. The liver and spleen, kidneys and adrenals, pancreas and aorta show no acute abnormalities. IMPRESSION: NONSPECIFIC MILD SMALL BOWEL DISTENTION. Macario Lee MD 10/18/18 [id number] Thank you for allowing us to participate in the care of your patient.
[~2018-10-18 17:46] MED LIST changes: +HYDROmorphone 1 MG/ML Syringe ONE; +Iopamidol 612 MG/ML 100 ML Bottle ONE; -Lactated Ringers 1,000 ML IV SCH; +Prochlorperazine 10 MG/2 ML SDV ONE; +Sodium Chloride 0.9% 1,000 ML IV ONE
[2018-10-18] MEDS ORDERED: HYDROmorphone 1 MG/ML Syringe IVPUSH PRN (18:04)
[2018-10-18] MEDS ORDERED: Ondansetron 4 MG/2 ML SDV IV PRN (18:04)
--- NOTE | 2018-10-18 18:18 | PCM.SN ---
- Free Text/Narrative Note: WBC's slightly elevated, but no left shift. Patient is afebrile. VSS. Patient does not meet sepsis criteria. Therefore, evaluation of labs, CT, and assessment of patient does not warrant IV abx therapy.
[2018-10-18] MEDS: Sodium Chloride 0.9% 1,000 ML IV SCH (18:45)
[2018-10-18] MEDS ORDERED: SUMAtriptan 50 MG Tab PO PRN (18:50)
[2018-10-18] MEDS ORDERED: Diclofenac Sodium 75 MG Tab.EC PO PRN (18:50)
[2018-10-18] MEDS: Fish Oil/Omega-3 Fatty Acids 1 Gm Cap PO SCH (19:35)
[2018-10-18] MEDS: Primidone 50 MG Tab PO SCH (19:35)
[2018-10-18] MEDS ORDERED: atorvaSTATin 10 MG Tab PO SCH (20:00)
[2018-10-18] MEDS ORDERED: Ciprofloxacin 500 MG Tab PO ONE (20:30)
[2018-10-18] MEDS: metFORMIN 500 MG Tab PO SCH (20:56)
[2018-10-18] MEDS: metroNIDAZOLE 500 MG Tab PO SCH (20:57)
[2018-10-18] MEDS ORDERED: Ciprofloxacin 250 MG Tab PO ONE (21:00)
[2018-10-19] MEDS: Ciprofloxacin 500 MG Tab PO SCH ×2 (00:34→08:29)
[2018-10-19] MEDS: Sodium Chloride 0.9% 1,000 ML IV SCH (01:11)
[2018-10-19] MEDS: metroNIDAZOLE 500 MG Tab PO SCH (05:40)
[2018-10-19 06:46] LABS: CHLORIDE,CL 102 mmol/L (98-107); SODIUM,NA 144 mmol/L (136-145)
[2018-10-19 06:50] LABS: ANION GAP 15.4 mmol/L (10-20)
[2018-10-19] MEDS ORDERED: Omeprazole 20 MG Cap.CR PO SCH (07:00)
[2018-10-19] MEDS ORDERED: VORTIOXETINE HYDROBROMIDE 10 MG PO SCH (08:00)
[2018-10-19] MEDS ORDERED: Hydrochlorothiazide 12.5 MG Cap PO SCH (08:00)
[2018-10-19] MEDS ORDERED: Aspirin 81 MG Tab.EC PO SCH (08:00)
[2018-10-19] MEDS ORDERED: PROPRANOLOL 160 MG PO SCH (08:00)
[2018-10-19] MEDS ORDERED: Losartan 50 MG Tab PO SCH (08:00)
[2018-10-19] MEDS: Fish Oil/Omega-3 Fatty Acids 1 Gm Cap PO SCH (08:26)
[2018-10-19] MEDS: Primidone 50 MG Tab PO SCH (08:26)
[2018-10-19] MEDS: metFORMIN 500 MG Tab PO SCH (08:26)
--- NOTE | 2018-10-19 09:57 | PCM.DCSUM1 ---
Discharge Summary - Hospital Course Free Text/Narrative:: PT SEEN THIS AM STATES FEELS MUCH BETTER NO PAIN NO NAUSEA VOMITING HOLDING PO AND WANTS TO GO HOME. S AYS DAUGHTER HAS GOTTEN ALL MEDS FILLED CIPRO AND FLAGLY FOR HOME. Exam O/p MMM lungs CTA Heart RRR Abd soft neg ttp normal BS no pain with pelvic rock no rebound ttp neg HSM no CVA ttp no LE edema Brief History: pt admitted with Nausea and abd pain DX colitis TX with IV abx cipro Flagyl and Zofran with IV hydration no complications and pt states feels better wants to go home - Discharge Data Discharge Date: 10/19/18 Discharge Disposition: Home, Self-Care 01 Condition: Good - Discharge Diagnosis/Problem(s) (1) Colitis SNOMED Code(s): 48673178 ICD Code: K52.9 - NONINFECTIVE GASTROENTERITIS AND COLITIS, UNSPECIFIED Status: Acute Current Visit: Yes - Patient Summary/Data Consults: Consultations 10/18/18 18:04 Consult to Case Management/Threading Machine Tender [CONS] Routine Recommended Follow-up Testing/Procedures: pt states will follow up with pcp in [facility] 2-3 days Continue all meds as directed Hospital Course: uneventful - Patient Instructions Diet: Usual Diet as Tolerated ([place] diet advance as tolorated ) - Discharge Plan Home Medications: Home Meds [place]-3 Fatty Acids [[place]-3] 1,000 mg PO BID 11/21/13 [History] Propranolol [Inderal LA] 160 mg PO DAILY 11/21/13 [History] SUMAtriptan Succinate [Imitrex] 1 tab PO ASDIRECTED PRN 11/21/13 [History] Aspirin [Adult Low Dose Aspirin EC] 81 mg PO DAILY 12/24/14 [History] Hydrochlorothiazide 12.5 mg PO DAILY 12/24/14 [History] Omeprazole 20 mg PO DAILY 12/24/14 [History] atorvaSTATin [Lipitor] 10 mg PO BEDTIME 12/24/14 [History] Primidone [Mysoline] 100 mg PO BID 09/07/17 [History] Vortioxetine Hydrobromide [Trintellix] 10 mg PO DAILY 09/07/17 [History] metFORMIN [Glucophage XR] 500 mg PO BID 09/07/17 [History] Diclofenac Sodium [Voltaren] 75 mg PO BID PRN 10/18/18 [History] Losartan [Cozaar] 100 mg PO DAILY 10/18/18 [History] Ciprofloxacin [Ciprofloxacin HCl] 500 mg PO BID #0 tablet 10/19/18 [Rx] Ondansetron [Zofran] 4 mg PO Q4H PRN #30 tab 10/19/18 [Rx] metroNIDAZOLE [Flagyl] 500 mg PO Q8H tablet 10/19/18 [Rx] - Discharge Summary/Plan Comment DC Time >30 min.: No Discharge Summary/Plan Comment: DC to home follow up with pcp in next 2-3 days take all meds as directed - General Info Date of Service: 10/19/18 Functional Status: Reports: Tolerating Diet - Review of Systems General: Reports: No Symptoms HEENT: Reports: No Symptoms Pulmonary: Reports: No Symptoms Cardiovascular: Reports: No Symptoms Gastrointestinal: Reports: No Symptoms Genitourinary: Reports: No Symptoms Musculoskeletal: Reports: No Symptoms Skin: Reports: No Symptoms Neurological: Reports: No Symptoms Psychiatric: Reports: No Symptoms - Patient Data Vitals - Most Recent: Last Vital Signs Temp 36.4 C 10/19/18 05:36 Pulse 72 10/19/18 05:36 Resp 12 10/19/18 05:36 BP 145/97 H 10/19/18 08:25 Pulse Ox 96 10/19/18 05:36 Weight - Most Recent: 69.853 kg I&O - Last 24 hours: Intake & Output 10/18/18 10/19/18 10/19/18 22:59 06:59 14:59 Intake Total 2152 120 Output Total 1025 550 Balance 1127 -430 Lab Results - Last 24 hrs: Laboratory Results - last 24 hr 10/19/18 10/19/18 10/19/18 Range/Units 06:09 06:09 06:30 WBC 7.2 (4.0-10.0) x10^3/uL RBC 5.05 (4.00-5.50) x10^6/uL Hgb 13.6 D (12.0-16.0) g/dL Hct 41.3 (33.0-47.0) % MCV 81.8 (78.0-93.0) fL MCH 26.9 (26.0-32.0) pg MCHC 32.9 (32.0-36.0) g/dL RDW Coeff of Mehran 13.4 (10.0-15.0) % Plt Count 261 (130-400) x10^3/uL Neut % (Auto) 37.2 L (50.0-80.0) % Lymph % (Auto) 50.5 H (25.0-50.0) % [place] % (Auto) 8.0 (2.0-11.0) % Eos % (Auto) 3.7 (0.0-4.0) % Baso % (Auto) 0.6 (0.2-1.2) % Sodium 144 (136-145) mmol/L Potassium 3.4 L (3.5-5.1) mmol/L Chloride 102 (98-107) mmol/L Carbon Dioxide 30 (21-32) mmol/L Anion Gap 15.4 (10-20) mmol/L BUN 8 (7-18) mg/dL Creatinine 0.7 (0.55-1.02) mg/dL Est Cr Clr Drug Dosing 74.72 mL/min Estimated GFR (MDRD) > 60 Glucose 70 L (74-106) mg/dL POC Glucose 55 L (74-106) mg/dL Calcium 8.1 L (8.5-10.1) mg/dL Med Orders - Current: Current Medications Aspirin (Halfprin) 81 mg PO DAILY [facility] Last Admin: 10/19/18 08:25 Dose: 81 mg Atorvastatin Calcium (Lipitor) 10 mg PO BEDTIME [facility] Last Admin: 10/18/18 19:36 Dose: 10 mg Ciprofloxacin (Ciprofloxacin Hcl) 500 mg PO BID [facility] Last Admin: 10/19/18 08:29 Dose: Not Given Diclofenac Sodium (Voltaren) 75 mg PO BID PRN PRN Reason: Pain Last Admin: 10/18/18 19:35 Dose: 75 mg Fish Oil (Fish Oil) 1 gm PO BID [facility] Last Admin: 10/19/18 08:26 Dose: 1 gm Hydrochlorothiazide (Hydrochlorothiazide) 12.5 mg PO DAILY [facility] Last Admin: 10/19/18 08:26 Dose: 12.5 mg Hydromorphone HCl (Dilaudid) 0.5 mg IVPUSH Q2H PRN PRN Reason: Pain (severe 7-10) Sodium Chloride (Normal Saline) 1,000 mls @ 125 mls/hr IV ASDIRECTED [facility] Last Admin: 10/19/18 01:11 Dose: 125 mls/hr Losartan Potassium (Cozaar) 100 mg PO DAILY [facility] Last Admin: 10/19/18 08:25 Dose: 100 mg Metformin HCl (Glucophage) 500 mg PO BID [facility] Last Admin: 10/19/18 08:26 Dose: 500 mg Metronidazole (Flagyl) 500 mg PO Q8H [facility] Last Admin: 10/19/18 05:40 Dose: 500 mg Non-Formulary Medication (Propranolol [Inderal La]) 160 mg PO DAILY [facility] Non-Formulary Medication (Vortioxetine Hydrobromide [Trintellix]) 10 mg PO DAILY [facility] Omeprazole (Omeprazole) 20 mg PO ACBREAKFAST [facility] Ondansetron HCl (Zofran) 4 mg IV Q6H PRN PRN Reason: Nausea/Vomiting Primidone (Mysoline) 100 mg PO BID [facility] Last Admin: 10/19/18 08:26 Dose: 100 mg Sumatriptan Succinate (Imitrex) 50 mg PO ASDIRECTED PRN PRN Reason: migraines Discontinued Medications Ciprofloxacin (Ciprofloxacin Hcl) 500 mg PO ONETIME ONE Stop: 10/18/18 20:31 Last Admin: 10/19/18 00:34 Dose: Not Given Ciprofloxacin (Ciprofloxacin Hcl) 500 mg PO ONETIME ONE Stop: 10/18/18 21:01 Last Admin: 10/18/18 20:57 Dose: 500 mg Omeprazole (Omeprazole) 20 mg PO ACBRK [facility] Last Admin: 10/19/18 06:25 Dose: 20 mg - Exam General: Reports: Alert, Oriented HEENT: Reports: Pupils Equal, Pupils Reactive, EOMI Neck: Reports: Supple, Trachea Midline Lungs: Reports: Clear to Auscultation, Normal Respiratory Effort Cardiovascular: Reports: Regular Rate, Regular Rhythm GI/Abdominal Exam: Normal Bowel Sounds, Soft, Non-Tender, No Organomegaly, No Distention, No Mass Back Exam: Denies: CVA Tenderness (L), CVA Tenderness (R) Extremities: Normal Inspection, Normal Range of Motion, Non-Tender, No Pedal Edema Skin: Reports: Warm Neurological: Reports: No New Focal Deficit Psy/Mental Status: Reports: Alert, Normal Affect, Normal Mood
[2018-10-19 10:07] VITALS: BP 138/80
[2018-10-20] MEDS ORDERED: Omeprazole 20 MG Cap.CR PO SCH (07:00)
== END 2018-10-19 10:55 | disposition home or self-care (01) ==
LOC: VM.MS 17:46
PROVIDERS: ADMIT Nurse Practitioner Family; ATTEND Nurse Practitioner Family
DX: K52.9 Noninfective gastroenteritis and colitis, unspecified (principal); E86.0 Dehydration; I10 Essential (primary) hypertension; E11.9 Type 2 diabetes mellitus without complications; E78.00 Pure hypercholesterolemia, unspecified; F32.9 Major depressive disorder, single episode, unspecified; Z88.5 Allergy status to narcotic agent; Z88.6 Allergy status to analgesic agent; Z88.8 Allergy status to other drugs, medicaments and biological substances; Z79.82 Long term (current) use of aspirin; Z79.84 Long term (current) use of oral hypoglycemic drugs; Z79.899 Other long term (current) drug therapy
CPT/HCPCS: 36415; 74177; 80048; 82150; 82962; 83605; 85025; 96360; 96361; A9270-GY; G0378; J0780; J1170; J7030; Q9967

== ENCOUNTER 2018-10-24 10:35 | Emergency (ER) | payer MEDICAID ==
[2018-10-24] MEDS ORDERED: Ondansetron 4 MG/2 ML SDV IVPUSH ONE ×2 (11:00→11:06)
[2018-10-24] MEDS ORDERED: Sodium Chloride 0.9% 10 ML Syringe FLUSH PRN (11:00)
[2018-10-24] MEDS ORDERED: Sodium Chloride 0.9% 1,000 ML IV ONE (11:06)
[2018-10-24 11:46] LABS: ANION GAP 16.2 mmol/L (10-20); CHLORIDE,CL 101 mmol/L (98-107); SODIUM,NA 143 mmol/L (136-145)
[2018-10-24] MEDS ORDERED: Prochlorperazine 10 MG/2 ML SDV IV ONE (12:13)
--- NOTE | 2018-10-24 13:31 | CR ---
[id number] RAD/RAD Abd Flat and Upright 2V EXAM: ABDOMEN 3 VIEWS INDICATION: Abdominal pain. COMPARISON: October 18, 2018. DISCUSSION: Scattered gas-filled nondilated small bowel loops. No bowel dilation, free air or pneumatosis is identified. Cholecystectomy clips in the right upper quadrant. There are multiple phleboliths in the pelvis. IMPRESSION: 1. No acute findings. Kike Martinez MD 10/24/18 1678 Thank you for allowing us to participate in the care of your patient.
[2018-10-24 14:34] VITALS: BP 148/108
--- NOTE | 2018-10-24 18:16 | EDM.PDOC ---
ED HPI GENERAL MEDICAL PROBLEM - General Chief Complaint: Gastrointestinal Problem Stated Complaint: VOMITING,NAUSEA,BLOOD IN STOOL Time Seen by Provider: 10/24/18 10:45 Source of Information: Reports: Patient History Limitations: Reports: No Limitations - History of Present Illness INITIAL COMMENTS - FREE TEXT/NARRATIVE: Pt. presents to ER with complaints of nausea, dry heaving, and bright red rectal bleeding. Pt. has been seen in ER twice and admitted once observation with nausea and vomiting. She has had 2 CT scans of her abdomen and pelvis which showed some thickening of the rectum and diverticulosis without diverticulitis. She has been on Cipro 500mg twice daily and flagyl 500mg TID. She states that she was feeling somewhat better-she was having LLQ abdominal pain previously which has improved. She states that she noticed bright red blood in the toilet after she had a BM today. She has a history of severe hemorrhoids as noted on her exam last week. Onset: Today Location: Reports: Abdomen Associated Symptoms: Reports: Nausea/Vomiting, Other (bloody stools) Treatments VICE PRESIDENT OF [employer]S: Reports: Other (see below) Other Treatments VICE PRESIDENT [employer]S: Zofran Abdominal Pain Score (Numeric/FACES): 1 - Related Data Allergies Allergy/AdvReac Type Severity Reaction Status Date / Time morphine Allergy Rash Verified 10/24/18 13:40 SHARAD Inhibitors AdvReac Cough Verified 10/24/18 13:40 codeine AdvReac Headache Verified 10/24/18 13:40 ibuprofen AdvReac Nausea and Verified 10/24/18 13:40 Vomiting Home Meds: Home Meds [place]-3 Fatty Acids [[place]-3] 1,000 mg PO BID 11/21/13 [History] Propranolol [Inderal LA] 160 mg PO DAILY 11/21/13 [History] SUMAtriptan Succinate [Imitrex] 1 tab PO ASDIRECTED PRN 11/21/13 [History] Aspirin [Adult Low Dose Aspirin EC] 81 mg PO DAILY 12/24/14 [History] Hydrochlorothiazide 12.5 mg PO DAILY 12/24/14 [History] Omeprazole 20 mg PO BID 12/24/14 [History] atorvaSTATin [Lipitor] 10 mg PO BEDTIME 12/24/14 [History] Primidone [Mysoline] 100 mg PO BID 09/07/17 [History] Vortioxetine Hydrobromide [Trintellix] 10 mg PO DAILY 09/07/17 [History] metFORMIN [Glucophage XR] 500 mg PO BID 09/07/17 [History] Diclofenac Sodium [Voltaren] 75 mg PO BID PRN 10/18/18 [History] Losartan [Cozaar] 100 mg PO DAILY 10/18/18 [History] Ciprofloxacin [Ciprofloxacin HCl] 500 mg PO BID #0 tablet 10/19/18 [Rx] Ondansetron [Zofran] 4 mg PO Q4H PRN #30 tab 10/19/18 [Rx] metroNIDAZOLE [Flagyl] 500 mg PO Q8H tablet 10/19/18 [Rx] Sucralfate [Carafate] 1 gm PO 10/24/18 [History] Past Medical History HEENT History: Reports: Cataract, Other (See Below) Other HEENT History: Senile cataracts. Myopia - Both. Presbyopia - Both Cardiovascular History: Reports: High Cholesterol, Hypertension, Other (See Below) Other Cardiovascular History: Palpitations. Diastolic Dysfunction Gastrointestinal History: Reports: Colon Polyp, GERD, Helicobacter Pylori, Other (See Below) Other Gastrointestinal History: bright red rectal bleeding. hx of h pylori Other Genitourinary History: cervicalgia Musculoskeletal History: Reports: Back Pain, Chronic, Other (See Below) Other Musculoskeletal History: Low back pain with left-sided sciatica Neurological History: Reports: Migraines Other Neuro History: Tremor Psychiatric History: Reports: Anxiety, Bipolar, Depression, Other (See Below) Other Psychiatric History: CODY (Generalized Anxiety Disorder). Daytime Somnolence. Psychophysiological Insomnia Endocrine/Metabolic History: Reports: Diabetes, Type II Other Endocrine/Metabolic History: Controlled Diabetic - Past Surgical History HEENT Surgical History: Reports: Eye Surgery Other HEENT Surgeries/Procedures: Multiple eye surgeries GI Surgical History: Reports: Cholecystectomy, Colonoscopy Female Surgical History: Reports: Hysterectomy, Tubal Ligation Neurological Surgical History: Reports: C-Spine Other Neurological Surgeries/Procedures: Neck vertebral surgery Other Musculoskeletal Surgeries/Procedures:: Spine surgery - neck vertebral surgery. Trigger finger release (Left) Oncologic Surgical History: Reports: Biopsy of Breast Social & Family History - Tobacco Use Smoking Status *Q: Former Smoker Used Tobacco, but Quit: Yes Month/Year Tobacco Last Used: 5 years ago - Caffeine Use Caffeine Use: Reports: Coffee - Recreational Drug Use Recreational Drug Use: Yes Drug Use in Last 12 Months: Yes Recreational Drug Type: Reports: Marijuana/Hashish Other Recreational Drug Type: Patient states she smoke "weed a couple times a week" Recreational Drug Use Frequency: Weekly ED ROS GENERAL - Review of Systems Review Of Systems: See Below Constitutional: Reports: No Symptoms HEENT: Reports: No Symptoms Respiratory: Reports: No Symptoms Cardiovascular: Reports: No Symptoms Endocrine: Reports: No Symptoms GI/Abdominal: Reports: Hematochezia, Nausea, Other (dry heaving) : Reports: No Symptoms Musculoskeletal: Reports: No Symptoms Skin: Reports: No Symptoms Neurological: Reports: No Symptoms Psychiatric: Reports: No Symptoms Hematologic/Lymphatic: Reports: No Symptoms Immunologic: Reports: No Symptoms ED EXAM, GENERAL - Physical Exam Exam: See Below Exam Limited By: No Limitations General Appearance: Alert, WD/WN, No Apparent Distress Head: Atraumatic, Normocephalic Neck: Normal Inspection, Supple, Non-Tender, Full Range of Motion Respiratory/Chest: No Respiratory Distress, Lungs Clear, Normal Breath Sounds, No Accessory Muscle Use, Chest Non-Tender Cardiovascular: Normal Peripheral Pulses, Regular Rate, Rhythm, No Edema, No Gallop, No JVD, No Murmur, No Rub Peripheral Pulses: 4+: Radial (L), Radial (R) GI/Abdominal: Normal Bowel Sounds, Soft, Non-Tender, No Organomegaly, No Distention, No Mass, Pelvis Stable (Female) Exam: Deferred Rectal (Female) Exam: Deferred Back Exam: Normal Inspection, Full Range of Motion Extremities: Normal Inspection, Normal Range of Motion, Non-Tender, No Pedal Edema, Normal Capillary Refill Neurological: Alert, Oriented, CN II-XII Intact, Normal Cognition, Normal Gait, Normal Reflexes, No Motor/Sensory Deficits Psychiatric: Normal Affect, Normal Mood Skin Exam: Warm, Dry, Intact, Normal Color, No Rash Lymphatic: No Adenopathy Course - Vital Signs Last Recorded V/S: Last Vital Signs Temp 35.9 C 10/24/18 10:40 Pulse 93 10/24/18 10:40 Resp 16 10/24/18 10:40 BP 148/108 H 10/24/18 10:40 Pulse Ox 99 10/24/18 10:40 - Orders/Labs/Meds Orders: Active Orders 24 hr Category Date Time Status Peripheral IV Insertion Adult [OM.PC] Routine Oth 10/24/18 11:00 Ordered Labs: Laboratory Tests 10/24/18 10/24/18 10/24/18 Range/Units 11:20 11:20 11:20 WBC 9.0 (4.0-10.0) x10^3/uL RBC 5.60 H (4.00-5.50) x10^6/uL Hgb 15.2 D (12.0-16.0) g/dL Hct 45.0 (33.0-47.0) % MCV 80.4 (78.0-93.0) fL MCH 27.1 (26.0-32.0) pg MCHC 33.8 (32.0-36.0) g/dL RDW Coeff of Mehran 14.0 (10.0-15.0) % Plt Count 306 (130-400) x10^3/uL Neut % (Auto) 50.0 (50.0-80.0) % Lymph % (Auto) 38.0 (25.0-50.0) % [place] % (Auto) 7.8 (2.0-11.0) % Eos % (Auto) 3.9 (0.0-4.0) % Baso % (Auto) 0.3 (0.2-1.2) % PT 11.2 (10.0-12.8) SEC INR 1.0 L (2.0-3.5) Sodium 143 (136-145) mmol/L Potassium 3.2 L (3.5-5.1) mmol/L Chloride 101 (98-107) mmol/L Carbon Dioxide 29 (21-32) mmol/L Anion Gap 16.2 (10-20) mmol/L BUN 12 (7-18) mg/dL Creatinine 1.0 (0.55-1.02) mg/dL Est Cr Clr Drug Dosing TNP Estimated GFR (MDRD) 57 Glucose 122 H (74-106) mg/dL Calcium 9.3 (8.5-10.1) mg/dL Corrected Calcium 9.38 (8.5-10.1) mg/dL Total Bilirubin 0.5 (0.2-1.0) mg/dL AST 59 H (15-37) U/L ALT 90 H (14-59) U/L Alkaline Phosphatase 67 (46-116) U/L C-Reactive Protein < 0.2 (<=0.9) mg/dL Total Protein 7.2 (6.4-8.2) g/dL Albumin 3.9 (3.4-5.0) g/dL Globulin 3.3 Albumin/Globulin Ratio 1.18 Meds: Medications Discontinued Medications Generic Name Dose Route Start Last Admin Trade Name Freq PRN Reason Stop Dose Admin Sodium Chloride 1,000 mls @ 1,000 mls/hr 10/24/18 11:06 10/24/18 11:09 Normal Saline IV 10/24/18 12:05 1,000 mls/hr .BOLUS ONE Administration Ondansetron HCl 4 mg 10/24/18 11:00 10/24/18 11:08 Zofran IVPUSH 10/24/18 11:01 4 mg ONETIME ONE Administration Ondansetron HCl 4 mg 10/24/18 11:06 10/24/18 12:23 Zofran IVPUSH 10/24/18 11:07 Not Given ONETIME ONE Prochlorperazine Edisylate 10 mg 10/24/18 12:13 10/24/18 12:35 Compazine IV 10/24/18 12:14 10 mg ONETIME ONE Administration Sodium Chloride 10 ml 10/24/18 11:00 Saline Flush FLUSH ASDIRECTED PRN Keep Vein Open - Radiology Interpretation Free Text/Narrative:: flat and upright abdominal series is negative for acute pathology - Re-Assessments/Exams Free Text/Narrative Re-Assessment/Exam: lab and x-ray are all within normal limits. Her fecal occult blood test was negative as well. She has numerous internal and external hemorrhoids that may have been the source of the bleeding noted earlier today. Pt. was given a liter of NS, zofran 4mg IV, and compazine 5mg IV. She reported improvement in the nausea. Departure - Departure Time of Disposition: 12:30 Disposition: Home, Self-Care 01 Clinical Impression: Proctitis - Discharge Information Instructions: Nausea and Vomiting, Adult, Prochlorperazine tablets, Proctitis Referrals: Darlene Mcclendon PA-C [Primary Care Provider] - Forms: ED Department Discharge Additional Instructions: Compazine 5mg once daily for nausea/vomiting Continue with your current medications Recheck in clinic in 7-10 days for recheck - My Orders Last 24 Hours: My Active Orders 10/24/18 11:00 Peripheral IV Insertion Adult [OM.PC] Routine - Assessment/Plan Last 24 Hours: My Active Orders 10/24/18 11:00 Peripheral IV Insertion Adult [OM.PC] Routine Plan: Compazine 5mg once daily for nausea/vomiting Continue with your current medications Recheck in clinic in 7-10 days for recheck
== END 2018-10-24 13:19 | disposition home or self-care (01) ==
LOC: VM.ED 10:35
DX: K62.89 Other specified diseases of anus and rectum (principal); E11.9 Type 2 diabetes mellitus without complications; I10 Essential (primary) hypertension; F31.9 Bipolar disorder, unspecified; F41.9 Anxiety disorder, unspecified; K21.9 Gastro-esophageal reflux disease without esophagitis; E78.00 Pure hypercholesterolemia, unspecified; Z79.84 Long term (current) use of oral hypoglycemic drugs; Z79.82 Long term (current) use of aspirin; Z79.899 Other long term (current) drug therapy; Z87.891 Personal history of nicotine dependence; Z88.6 Allergy status to analgesic agent; Z88.5 Allergy status to narcotic agent
CPT/HCPCS: 74019; 80053; 82272; 85025; 85610; 86140; 96361; 96374; 96375; 99283; J0780; J2405; J7030

== ENCOUNTER 2020-10-03 19:32 | Emergency (ER) | payer MEDICAID ==
[2020-10-03] MEDS: Sodium Chloride 0.9% 1,000 ML IV ONE (19:45)
[2020-10-03] MEDS: Ondansetron 4 MG/2 ML SDV ONE (19:50)
[2020-10-03] MEDS: LORazepam 2 MG/ML SDV IVPUSH ONE (20:08)
[2020-10-03] MEDS ORDERED: Sodium Chloride 0.9% 10 ML Syringe FLUSH PRN (20:09)
[2020-10-03] MEDS ORDERED: Ondansetron 4 MG/2 ML SDV IVPUSH ONE (20:10)
[2020-10-03] MEDS: Aspirin 81 MG Tab.Chew PO ONE (20:10)
[2020-10-03] MEDS ORDERED: LORazepam 2 MG/ML SDV ONE (20:19)
--- NOTE | 2020-10-03 20:29 | EDM.PDOC ---
ED HPI GENERAL MEDICAL PROBLEM - General Stated Complaint: GABRIELA, YAYO, SOB Time Seen by Provider: 10/03/20 20:07 Source of Information: Reports: Patient - History of Present Illness INITIAL COMMENTS - FREE TEXT/NARRATIVE: Alicja is a 59 y/o female who is brought to the ER by her daughter for a 24 hour history of not feeling well. She reports being nauseated and having a decrease appetite and then today she started a mild cough. She had a +COVID exposure about a week ago, but was tested at the [facility] 2 days ago and the result was negative. She denies any fever. She does have a significant tremor and today it has been much wore than usual. Tonight on arrival to the ER she was nauseated and the nurse gave her some Zofran. She then had an episode where she became extremely short of breath and then reported that her chest felt "heavy". She got very diaphoretic and pale. On initial presentation she was pain free. - Related Data Allergies Allergy/AdvReac Type Severity Reaction Status Date / Time morphine Allergy Rash Verified 10/24/18 13:40 SHARAD Inhibitors AdvReac Cough Verified 10/24/18 13:40 codeine AdvReac Headache Verified 10/24/18 13:40 ibuprofen AdvReac Nausea and Verified 10/24/18 13:40 Vomiting Home Meds: Home Meds Malakoff-3 Fatty Acids [Malakoff-3] 1,000 mg PO BID 11/21/13 [History] Propranolol [Inderal LA] 160 mg PO DAILY 11/21/13 [History] SUMAtriptan succinate [Imitrex] 1 tab PO ASDIRECTED PRN 11/21/13 [History] Aspirin [Adult Low Dose Aspirin EC] 81 mg PO DAILY 12/24/14 [History] Hydrochlorothiazide 12.5 mg PO DAILY 12/24/14 [History] Omeprazole 20 mg PO BID 12/24/14 [History] atorvaSTATin [Lipitor] 10 mg PO BEDTIME 12/24/14 [History] Primidone [Mysoline] 100 mg PO BID 09/07/17 [History] Vortioxetine [Trintellix] 10 mg PO DAILY 09/07/17 [History] metFORMIN [Glucophage XR] 500 mg PO BID 09/07/17 [History] Diclofenac Sodium [Voltaren] 75 mg PO BID PRN 10/18/18 [History] Losartan [Cozaar] 100 mg PO DAILY 10/18/18 [History] Ciprofloxacin [Ciprofloxacin HCl] 500 mg PO BID #0 tablet 10/19/18 [Rx] Ondansetron [Zofran] 4 mg PO Q4H PRN #30 tab 10/19/18 [Rx] metroNIDAZOLE [Flagyl] 500 mg PO Q8H tablet 10/19/18 [Rx] Sucralfate [Carafate] 1 gm PO 10/24/18 [History] Past Medical History HEENT History: Reports: Cataract, Other (See Below) Other HEENT History: Senile cataracts. Myopia - Both. Presbyopia - Both Cardiovascular History: Reports: High Cholesterol, Hypertension, Other (See Below) Other Cardiovascular History: Palpitations. Diastolic Dysfunction Gastrointestinal History: Reports: Colon Polyp, GERD, Helicobacter Pylori, Other (See Below) Other Gastrointestinal History: bright red rectal bleeding. hx of h pylori Other Genitourinary History: cervicalgia Musculoskeletal History: Reports: Back Pain, Chronic, Other (See Below) Other Musculoskeletal History: Low back pain with left-sided sciatica Neurological History: Reports: Migraines Other Neuro History: Tremor Psychiatric History: Reports: Anxiety, Bipolar, Depression, Other (See Below) Other Psychiatric History: COYD (Generalized Anxiety Disorder). Daytime Somnolence. Psychophysiological Insomnia Endocrine/Metabolic History: Reports: Diabetes, Type II Other Endocrine/Metabolic History: Controlled Diabetic - Past Surgical History HEENT Surgical History: Reports: Eye Surgery Other HEENT Surgeries/Procedures: Multiple eye surgeries GI Surgical History: Reports: Cholecystectomy, Colonoscopy Female Surgical History: Reports: Hysterectomy, Tubal Ligation Neurological Surgical History: Reports: C-Spine Other Neurological Surgeries/Procedures: Neck vertebral surgery Other Musculoskeletal Surgeries/Procedures:: Spine surgery - neck vertebral surgery. Trigger finger release (Left) Oncologic Surgical History: Reports: Biopsy of Breast Social & Family History - Caffeine Use Caffeine Use: Reports: Coffee Review of Systems - Review of Systems Review Of Systems: See Below Constitutional: Reports: Weakness Eyes: Reports: No Symptoms Ears: Reports: No Symptoms Nose: Reports: No Symptoms Mouth/Throat: Reports: No Symptoms Respiratory: Reports: Shortness of Breath, Cough Cardiovascular: Reports: Chest Pain GI/Abdominal: Reports: Nausea Genitourinary: Reports: No Symptoms Musculoskeletal: Reports: No Symptoms Skin: Reports: No Symptoms Neurological: Reports: No Symptoms Psychiatric: Reports: No Symptoms ED EXAM, GENERAL - Physical Exam Exam: See Below Exam Limited By: Other (Patient has an essential tremor that is quite exagerrated upon initial assessment making it hard for her to answer questions.) General Appearance: Alert, WD/WN Eye Exam: Bilateral Eye: PERRL Ears: Normal External Exam, Normal Canal, Hearing Grossly Normal Nose: Normal Inspection, Normal Mucosa Throat/Mouth: Normal Inspection, Normal Lips, Normal Oropharynx, Normal Voice Head: Atraumatic, Normocephalic Neck: Normal Inspection, Supple, Non-Tender Respiratory/Chest: No Respiratory Distress, Lungs Clear, Normal Breath Sounds Cardiovascular: Normal Peripheral Pulses, Regular Rate, Rhythm GI/Abdominal: Normal Bowel Sounds, Soft, Non-Tender (Female) Exam: Deferred Rectal (Female) Exam: Deferred Back Exam: Normal Inspection Extremities: Normal Inspection, Normal Range of Motion, Normal Capillary Refill Neurological: Alert, Oriented, CN II-XII Intact Psychiatric: Anxious Skin Exam: Warm, Intact, Diaphoretic, Pallor #1 Interpretation EKG Date: 10/03/20 Time: 20:14 Rhythm: NSR Rate (Beats/Min): 63 [place]: Normal P-Wave: Present QRS: Normal ST-T: Normal QT: Normal Course - Vital Signs Text/Narrative:: 2006 [employer] assessed patient. Upon entering the exam room, patient was very anxious and short of breath. Her tremor was quite severe and she was pale and her skin was diaphoretic. RN was attempting to obtain EKG, but tremor was making this difficult. Labs, CXR ordered. Oxygen was placed since she was SOB. ASA 324mg po given. She was given Zofran 4mg IVP for nausea. Lorazepam 1 mg IVP ordered to help patient relax. 2013 Lorazepam given and patient now able to relax enough for EKG. 2044 Patient now feeling like she has a migraine headache coming on, will given Toradol 30mg IVP, Benadryl 50mg IVP, and Reglan 20mg IVP to abort the migraine. 2144 D-Dimer=0.65, CTA ordered. SOB better and patient resting now. She reports her headache and nausea are better. Will plan discharge if CT returns neg. 2304 CTA results neg. Patient resting and sx free. She was given discharge instructions and left the ER in stable condition with her daughter. Last Recorded V/S: Last Vital Signs Temp 35.1 C L 10/03/20 19:35 Pulse 81 10/03/20 21:45 Resp 18 10/03/20 21:45 BP 114/59 L 10/03/20 21:45 Pulse Ox 96 10/03/20 21:45 - Orders/Labs/Meds Orders: Active Orders 24 hr Category Date Time Status EKG Documentation Completion [RC] STAT Care 10/03/20 20:08 Active Ang Chest [CT] Stat Exams 10/03/20 21:45 Ordered UA RFX VIV AND CULT IF INDIC [URIN] Stat Lab 10/03/20 20:08 Ordered Sodium Chloride 0.9% [Saline Flush] Med 10/03/20 20:09 Active 10 ml FLUSH ASDIRECTED PRN Saline Lock Insert [OM.PC] Stat Oth 10/03/20 20:08 Ordered Medication Orders Sodium Chloride (Sodium Chloride 0.9% 10 Ml Syringe) 10 ml FLUSH ASDIRECTED PRN PRN Reason: Keep Vein Open Labs: Laboratory Tests 10/03/20 10/03/20 10/03/20 Range/Units 19:44 19:44 19:44 WBC 11.9 H (4.0-10.0) x10^3/uL RBC 6.02 H (4.00-5.50) x10^6/uL Hgb 16.5 H (12.0-16.0) g/dL Hct 48.2 H (33.0-47.0) % MCV 80.1 (78.0-93.0) fL MCH 27.4 (26.0-32.0) pg MCHC 34.2 (32.0-36.0) g/dL RDW Coeff of Mehran 14.0 (10.0-15.0) % Plt Count 308 (130-400) x10^3/uL Neut % (Auto) 59.8 (50.0-80.0) % Lymph % (Auto) 27.8 (25.0-50.0) % [place] % (Auto) 8.4 (2.0-11.0) % Eos % (Auto) 3.3 (0.0-4.0) % Baso % (Auto) 0.7 (0.2-1.2) % PT 10.6 (9.9-12.5) SEC INR 1.0 L (2.0-3.5) APTT 23.9 L (25.6-32.8) SEC D-Dimer, Quantitative 0.65 H (<=0.58) mg/LFEU Sodium 140 (136-145) mmol/L Potassium 4.4 (3.5-5.1) mmol/L Chloride 99 (98-107) mmol/L Carbon Dioxide 34 H (21-32) mmol/L Anion Gap 11.4 (5-15) mmol/L BUN 14 (7-18) mg/dL Creatinine 0.9 (0.55-1.02) mg/dL Est Cr Clr Drug Dosing 54.30 mL/min Estimated GFR (MDRD) > 60 Glucose 103 H (70-99) mg/dL Calcium 9.7 (8.5-10.1) mg/dL Corrected Calcium 9.70 (8.5-10.1) mg/dL Magnesium 2.1 (1.8-2.4) mg/dL Total Bilirubin 0.5 (0.2-1.0) mg/dL AST 19 (15-37) U/L ALT 32 (14-59) U/L Alkaline Phosphatase 120 H (46-116) U/L Troponin I High Sens 6 (<=51) ng/L NT-Pro-B Natriuret Pep 220 H (<=125) pg/mL Total Protein 7.8 (6.4-8.2) g/dL Albumin 4.0 (3.4-5.0) g/dL Globulin 3.8 Albumin/Globulin Ratio 1.05 Ethyl Alcohol < 3 (0-3) mg/dL SARS CoV-2 RNA Rapid DIVYA (NEGATIVE) 10/03/20 Range/Units 19:55 WBC (4.0-10.0) x10^3/uL RBC (4.00-5.50) x10^6/uL Hgb (12.0-16.0) g/dL Hct (33.0-47.0) % MCV (78.0-93.0) fL MCH (26.0-32.0) pg MCHC (32.0-36.0) g/dL RDW Coeff of Mehran (10.0-15.0) % Plt Count (130-400) x10^3/uL Neut % (Auto) (50.0-80.0) % Lymph % (Auto) (25.0-50.0) % [place] % (Auto) (2.0-11.0) % Eos % (Auto) (0.0-4.0) % Baso % (Auto) (0.2-1.2) % PT (9.9-12.5) SEC INR (2.0-3.5) APTT (25.6-32.8) SEC D-Dimer, Quantitative (<=0.58) mg/LFEU Sodium (136-145) mmol/L Potassium (3.5-5.1) mmol/L Chloride (98-107) mmol/L Carbon Dioxide (21-32) mmol/L Anion Gap (5-15) mmol/L BUN (7-18) mg/dL Creatinine (0.55-1.02) mg/dL Est Cr Clr Drug Dosing mL/min Estimated GFR (MDRD) Glucose (70-99) mg/dL Calcium (8.5-10.1) mg/dL Corrected Calcium (8.5-10.1) mg/dL Magnesium (1.8-2.4) mg/dL Total Bilirubin (0.2-1.0) mg/dL AST (15-37) U/L ALT (14-59) U/L Alkaline Phosphatase (46-116) U/L Troponin I High Sens (<=51) ng/L NT-Pro-B Natriuret Pep (<=125) pg/mL Total Protein (6.4-8.2) g/dL Albumin (3.4-5.0) g/dL Globulin Albumin/Globulin Ratio Ethyl Alcohol (0-3) mg/dL SARS CoV-2 RNA Rapid DIVYA Negative (NEGATIVE) Meds: Medications Generic Name Dose Route Start Last Admin Trade Name Freq PRN Reason Stop Dose Admin Sodium Chloride 10 ml 10/03/20 20:09 Sodium Chloride 0.9% 10 Ml Syringe FLUSH ASDIRECTED PRN Keep Vein Open Discontinued Medications Generic Name Dose Route Start Last Admin Trade Name Freq PRN Reason Stop Dose Admin Aspirin 324 mg 10/03/20 20:09 10/03/20 20:10 Aspirin 81 Mg Tab.Chew PO 10/03/20 20:10 324 mg ONETIME ONE Administration Diphenhydramine HCl 50 mg 10/03/20 20:44 10/03/20 21:07 Diphenhydramine 50 Mg/Ml Sdv IVPUSH 10/03/20 20:45 50 mg ONETIME ONE Administration Sodium Chloride 1,000 mls @ 999 mls/hr 10/03/20 20:44 10/03/20 19:45 Normal Saline IV 10/03/20 21:44 999 mls/hr ONETIME ONE Administration Ketorolac Tromethamine 30 mg 10/03/20 20:44 10/03/20 21:08 Ketorolac 30 Mg/Ml Sdv IVPUSH 10/03/20 20:45 30 mg ONETIME ONE Administration Lorazepam Confirm 10/03/20 20:19 Lorazepam 2 Mg/Ml Sdv Administered 10/03/20 20:20 Dose 2 mg .ROUTE .STK-MED ONE Lorazepam 1 mg 10/03/20 20:09 10/03/20 20:08 Lorazepam 2 Mg/Ml Sdv IVPUSH 10/03/20 20:10 1 mg STAT ONE Administration Metoclopramide HCl 20 mg 10/03/20 20:44 10/03/20 21:04 Metoclopramide 10 Mg/2 Ml Sdv IVPUSH 10/03/20 20:45 20 mg ONETIME ONE Administration Ondansetron HCl Confirm 10/03/20 20:01 10/03/20 19:50 Ondansetron 4 Mg/2 Ml Sdv Administered 10/03/20 20:02 4 mg Dose Administration 4 mg .ROUTE .STK-MED ONE Ondansetron HCl 4 mg 10/03/20 20:10 Ondansetron 4 Mg/2 Ml Sdv IVPUSH 10/03/20 20:11 ONETIME ONE - Radiology Interpretation Free Text/Narrative:: XR Chest 1V=no acute findings CTA=no acute findings Departure - Departure Time of Disposition: 23:08 Disposition: Home, Self-Care 01 Condition: Good Clinical Impression: Positive D dimer Migraine Qualifiers: Migraine type: unspecified Status migrainosus presence: with status migrainosus Intractability: not intractable Qualified Code(s): G43.901 - Migraine, unspecified, not intractable, with status migrainosus - Discharge Information Instructions: Recurrent Migraine Headache, [id number] Referrals: Darlene Mcclendon PA-C [Primary Care Provider] - Sepsis Event Note (ED) - Focused Exam Vital Signs: Vital Signs Temp Pulse Resp BP Pulse Ox 10/03/20 21:45 81 18 114/59 L 96 10/03/20 19:35 35.1 C L 93 30 H 177/124 H 96 - My Orders Last 24 Hours: My Active Orders 10/03/20 20:08 EKG Documentation Completion [RC] STAT UA RFX VIV AND CULT IF INDIC [URIN] Stat Saline Lock Insert [OM.PC] Stat 10/03/20 20:09 Sodium Chloride 0.9% [Saline Flush] 10 ml FLUSH ASDIRECTED PRN 10/03/20 21:45 Ang Chest [CT] Stat - Assessment/Plan Last 24 Hours: My Active Orders 10/03/20 20:08 EKG Documentation Completion [RC] STAT UA RFX VIV AND CULT IF INDIC [URIN] Stat Saline Lock Insert [OM.PC] Stat 10/03/20 20:09 Sodium Chloride 0.9% [Saline Flush] 10 ml FLUSH ASDIRECTED PRN 10/03/20 21:45 Ang Chest [CT] Stat Assessment:: 1)Migraine Headache 2)Positive D Dimer Plan: -Resume home meds as prescribed -Keep all upcoming specialty appts -Hold Metformin for 24 hours since you had a CT with contrast dye. -Follow up with your PCP for further care -Return to the ER as needed
[2020-10-03 20:45] LABS: CHLORIDE,CL 99 mmol/L (98-107); SODIUM,NA 140 mmol/L (136-145)
[2020-10-03 20:47] LABS: ANION GAP 11.4 mmol/L (5-15)
[2020-10-03 20:58] LABS: PTT,PARTIAL THROMBOPLSTIN TIME 23.9 SEC (25.6-32.8)
--- NOTE | 2020-10-03 20:58 | CR ---
[id number] RAD/RAD Chest PA or AP 1V EXAM: FRONTAL CHEST INDICATION: SOB, CHEST DISCOMFORT. FEVER, CHILLS, N/V, COUGH. COMPARISON: October 17, 2018. DISCUSSION: The lungs are borderline hyperinflated, but clear. Mild chronic elevation of the right hemidiaphragm. Borderline heart size. No effusions. Fusion hardware in the lower cervical spine. IMPRESSION: 1. No acute findings. Kike Martinez MD 10/03/202056 Thank you for allowing us to participate in the care of your patient.
[2020-10-03] MEDS: Metoclopramide 10 MG/2 ML SDV IVPUSH ONE (21:04)
[2020-10-03] MEDS: diphenhydrAMINE 50 MG/ML SDV IVPUSH ONE (21:07)
[2020-10-03] MEDS: Ketorolac 30 MG/ML SDV IVPUSH ONE (21:08)
[2020-10-03 21:47] VITALS: BP 114/59
[2020-10-03 22:27] VITALS: PULSE 77
[2020-10-03] MEDS: Iopamidol 612 MG/ML 100 ML Bottle IVPUSH ONE (22:45)
--- NOTE | 2020-10-04 08:15 | CT ---
[id number] CT/CTA Chest EXAM: CT ANGIOGRAM CHEST INDICATION: ELEVATED DDIMER, SOB INCIDENT. COMPARISON: October 17, 2018 radiographs. DISCUSSION: The pulmonary arteries are normal in appearance with no emboli identified. Mild scarring in the lung apices. Bronchial wall thickening suggests underlying bronchitis. No infiltrates. No pleural or pericardial effusion. Normal heart size. No mediastinal, hilar or axillary lymphadenopathy. Cholecystectomy clips in the right upper quadrant. Partially imaged fusion hardware in the lower cervical spine. The osseous structures are otherwise unremarkable. IMPRESSION: 1. Negative for pulmonary embolism. 2. Bronchial wall thickening suggests underlying bronchitis. Kike Martinez MD 10/04/20 0814 Thank you for allowing us to participate in the care of your patient.
== END 2020-10-03 23:15 | disposition home or self-care (01) ==
LOC: VM.ED 19:32
DX: G43.909 Migraine, unspecified, not intractable, without status migrainosus (principal); R79.1 Abnormal coagulation profile; E78.00 Pure hypercholesterolemia, unspecified; I10 Essential (primary) hypertension; K21.9 Gastro-esophageal reflux disease without esophagitis; E11.9 Type 2 diabetes mellitus without complications; Z79.84 Long term (current) use of oral hypoglycemic drugs; Z79.899 Other long term (current) drug therapy; Z88.5 Allergy status to narcotic agent; Z88.8 Allergy status to other drugs, medicaments and biological substances; Z88.6 Allergy status to analgesic agent; Z79.82 Long term (current) use of aspirin; Z20.822 Contact with and (suspected) exposure to COVID-19
CPT/HCPCS: 71045; 71275; 80053; 80307; 83735; 83880; 84484; 85025; 85379; 85610; 85730; 93005; 93010; 96374; 96375; 99284; 99285-25; A9270-GY; J1200; J1885; J2060; J2405; J2765; J7030; Q9967; U0002

== ENCOUNTER 2021-01-31 19:35 | Emergency (ER) | payer MEDICAID ==
[2021-01-31] MEDS ORDERED: Sodium Chloride 0.9% 1,000 ML IV ONE (19:45)
[2021-01-31] MEDS ORDERED: Ondansetron 4 MG/2 ML SDV IVPUSH ONE ×2 (19:45→20:37)
[2021-01-31] MEDS ORDERED: Meclizine 25 MG Tab PO ONE ×2 (19:45→20:38)
--- NOTE | 2021-01-31 19:55 | EDM.PDOC ---
ED HPI GENERAL MEDICAL PROBLEM - General Chief Complaint: General Stated Complaint: dizzy Time Seen by Provider: 01/31/21 19:40 Source of Information: Reports: Patient History Limitations: Reports: No Limitations - History of Present Illness INITIAL COMMENTS - FREE TEXT/NARRATIVE: Patient comes in the emergency department with complaints of dizziness. Patient states that started abruptly. Patient states she has had this happened 2 other times prior to today. Today's was more significant severe than it has been in the past. The patient states that she was trying to get up out of her chair and had a significant bout of dizziness. It did resolve on its own after about 5 minutes. Then later in the day she was eating [employer] and turned her head and when she turned her head she began to feel extremely dizzy and diaphoretic. She states that the room continues to spin even in the emergency department. She was brought in by family. Patient denies any chest pain, shortness of breath, lightheadedness, blurred vision, abdominal., Or genitourinary concerns. Patient states that she is nauseated and has thrown up due to the significant amount of dizziness. Onset: Sudden Location: Reports: Head Quality: Reports: Other Severity: Moderate Improves with: Reports: Rest Worsens with: Reports: Movement Context: Reports: Other Associated Symptoms: Reports: Diaphoresis, Nausea/Vomiting. Denies: Fever/Chills, Headaches, Loss of Appetite, Malaise, Rash, Seizure, Shortness of Breath, Syncope - Related Data Allergies Allergy/AdvReac Type Severity Reaction Status Date / Time morphine Allergy Rash Verified 10/24/18 13:40 SHARAD Inhibitors AdvReac Cough Verified 10/24/18 13:40 codeine AdvReac Headache Verified 10/24/18 13:40 ibuprofen AdvReac Nausea and Verified 10/24/18 13:40 Vomiting Home Meds: Home Meds Oneill-3 Fatty Acids [Oneill-3] 1,000 mg PO BID 11/21/13 [History] Propranolol [Inderal LA] 160 mg PO DAILY 11/21/13 [History] SUMAtriptan succinate [Imitrex] 1 tab PO ASDIRECTED PRN 11/21/13 [History] Aspirin [Adult Low Dose Aspirin EC] 81 mg PO DAILY 12/24/14 [History] Hydrochlorothiazide 12.5 mg PO DAILY 12/24/14 [History] Omeprazole 20 mg PO BID 12/24/14 [History] atorvaSTATin [Lipitor] 10 mg PO BEDTIME 12/24/14 [History] Primidone [Mysoline] 100 mg PO BID 09/07/17 [History] Vortioxetine [Trintellix] 10 mg PO DAILY 09/07/17 [History] metFORMIN [Glucophage XR] 500 mg PO BID 09/07/17 [History] Diclofenac Sodium [Voltaren] 75 mg PO BID PRN 10/18/18 [History] Losartan [Cozaar] 100 mg PO DAILY 10/18/18 [History] Ciprofloxacin [Ciprofloxacin HCl] 500 mg PO BID #0 tablet 10/19/18 [Rx] Ondansetron [Zofran] 4 mg PO Q4H PRN #30 tab 10/19/18 [Rx] metroNIDAZOLE [Flagyl] 500 mg PO Q8H tablet 10/19/18 [Rx] Sucralfate [Carafate] 1 gm PO 10/24/18 [History] Past Medical History HEENT History: Reports: Cataract, Other (See Below) Other HEENT History: Senile cataracts. Myopia - Both. Presbyopia - Both Cardiovascular History: Reports: High Cholesterol, Hypertension, Other (See Below) Other Cardiovascular History: Palpitations. Diastolic Dysfunction Gastrointestinal History: Reports: Colon Polyp, GERD, Helicobacter Pylori, Other (See Below) Other Gastrointestinal History: bright red rectal bleeding. hx of h pylori Other Genitourinary History: cervicalgia Musculoskeletal History: Reports: Back Pain, Chronic, Other (See Below) Other Musculoskeletal History: Low back pain with left-sided sciatica Neurological History: Reports: Migraines Other Neuro History: Tremor Psychiatric History: Reports: Anxiety, Bipolar, Depression, Other (See Below) Other Psychiatric History: CODY (Generalized Anxiety Disorder). Daytime Somnolence. Psychophysiological Insomnia Endocrine/Metabolic History: Reports: Diabetes, Type II Other Endocrine/Metabolic History: Controlled Diabetic - Past Surgical History HEENT Surgical History: Reports: Eye Surgery Other HEENT Surgeries/Procedures: Multiple eye surgeries GI Surgical History: Reports: Cholecystectomy, Colonoscopy Female Surgical History: Reports: Hysterectomy, Tubal Ligation Neurological Surgical History: Reports: C-Spine Other Neurological Surgeries/Procedures: Neck vertebral surgery Other Musculoskeletal Surgeries/Procedures:: Spine surgery - neck vertebral surgery. Trigger finger release (Left) Oncologic Surgical History: Reports: Biopsy of Breast Social & Family History - Family History Family Medical History: Unobtainable - Caffeine Use Caffeine Use: Reports: Coffee ED ROS GENERAL - Review of Systems Review Of Systems: Comprehensive ROS is negative, except as noted in HPI. Constitutional: Reports: Diaphoresis HEENT: Reports: No Symptoms Respiratory: Reports: No Symptoms Cardiovascular: Reports: No Symptoms Endocrine: Reports: No Symptoms GI/Abdominal: Reports: Nausea, Vomiting : Reports: No Symptoms Musculoskeletal: Reports: No Symptoms Skin: Reports: No Symptoms Neurological: Reports: No Symptoms Psychiatric: Reports: No Symptoms Hematologic/Lymphatic: Reports: No Symptoms Immunologic: Reports: No Symptoms ED EXAM, GENERAL - Physical Exam Exam: See Below Exam Limited By: No Limitations General Appearance: Alert, WD/WN, No Apparent Distress Eye Exam: Bilateral Eye: PERRL Ears: Normal External Exam, Normal Canal Head: Atraumatic, Normocephalic Neck: Normal Inspection, Supple, Non-Tender Respiratory/Chest: No Respiratory Distress, Lungs Clear, Normal Breath Sounds, No Accessory Muscle Use, Chest Non-Tender Cardiovascular: Normal Peripheral Pulses, Regular Rate, Rhythm, No Edema Back Exam: Normal Inspection, Full Range of Motion Extremities: Normal Inspection, Normal Range of Motion, Non-Tender, No Pedal Edema, Normal Capillary Refill Neurological: Alert, Oriented Psychiatric: Normal Affect, Normal Mood Skin Exam: Warm, Dry, Intact #1 Interpretation EKG Date: 01/31/21 Rhythm: NSR [place]: Normal P-Wave: Present QRS: Normal ST-T: Normal QT: Normal Course - Vital Signs Last Recorded V/S: Last Vital Signs Temp 36.1 C 01/31/21 19:40 Pulse 52 L 01/31/21 19:40 Resp 14 01/31/21 19:40 BP 141/76 H 01/31/21 19:40 Pulse Ox 96 01/31/21 19:40 - Orders/Labs/Meds Orders: Active Orders 24 hr Category Date Time Status Meclizine [Antivert] Med 01/31/21 20:38 Once 100 mg PO ONETIME ONE Sodium Chloride 0.9% [Normal Saline] 1,000 ml Med 01/31/21 19:45 Active IV ONETIME Medication Orders Sodium Chloride (Normal Saline) 1,000 mls @ 999 mls/hr IV ONETIME ONE Stop: 01/31/21 20:45 Last Admin: 01/31/21 19:50 Dose: 999 mls/hr Documented by: [email or web address] Labs: Laboratory Tests 01/31/21 01/31/21 01/31/21 Range/Units 19:45 19:45 19:45 WBC 10.5 H (4.0-10.0) x10^3/uL RBC 5.99 H (4.00-5.50) x10^6/uL Hgb 16.4 H (12.0-16.0) g/dL Hct 46.9 (33.0-47.0) % MCV 78.3 (78.0-93.0) fL MCH 27.4 (26.0-32.0) pg MCHC 35.0 (32.0-36.0) g/dL RDW Coeff of Mehran 13.8 (10.0-15.0) % Plt Count 322 (130-400) x10^3/uL Immature Gran % (Auto) 0.00 (0.00-0.43) % Neut % (Auto) 41.2 L (50.0-80.0) % Lymph % (Auto) 47.1 (25.0-50.0) % [place] % (Auto) 7.9 (2.0-11.0) % Eos % (Auto) 3.2 (0.0-4.0) % Baso % (Auto) 0.6 (0.2-1.2) % Neut # (Auto) 4.4 (1.8-7.7) x10^3/uL Lymph # (Auto) 5.0 H (1.0-4.8) x10^3/uL [place] # (Auto) 0.8 (0.0-0.8) x10^3/uL Eos # (Auto) 0.3 (0.0-0.5) x10^3/uL Baso # (Auto) 0.1 (0.0-0.2) x10^3/uL Immature Gran # (Auto) 0.00 (0.00-0.07) x10^3/uL Sodium 139 (136-145) mmol/L Potassium 3.5 (3.5-5.1) mmol/L Chloride 100 (98-107) mmol/L Carbon Dioxide 28 (21-32) mmol/L Anion Gap 14.5 (5-15) mmol/L BUN 20 H (7-18) mg/dL Creatinine 1.0 (0.55-1.02) mg/dL Est Cr Clr Drug Dosing 50.37 mL/min Estimated GFR (MDRD) 56 Glucose 91 (70-99) mg/dL Lactic Acid 1.7 (0.4-2.0) mmol/L Calcium 9.2 (8.5-10.1) mg/dL Corrected Calcium 9.1 (8.5-10.1) mg/dL Total Bilirubin 0.3 (0.2-1.0) mg/dL AST 14 L (15-37) U/L ALT 25 (14-59) U/L Alkaline Phosphatase 98 (46-116) U/L Creatine Kinase 59 (26-192) U/L Troponin I High Sens 5 (<=51) ng/L NT-Pro-B Natriuret Pep 144 H (<=125) pg/mL Total Protein 7.8 (6.4-8.2) g/dL Albumin 4.1 (3.4-5.0) g/dL Globulin 3.7 Albumin/Globulin Ratio 1.11 SARS CoV-2 RNA Rapid DIVYA (NEGATIVE) 01/31/21 Range/Units 19:59 WBC (4.0-10.0) x10^3/uL RBC (4.00-5.50) x10^6/uL Hgb (12.0-16.0) g/dL Hct (33.0-47.0) % MCV (78.0-93.0) fL MCH (26.0-32.0) pg MCHC (32.0-36.0) g/dL RDW Coeff of Mehran (10.0-15.0) % Plt Count (130-400) x10^3/uL Immature Gran % (Auto) (0.00-0.43) % Neut % (Auto) (50.0-80.0) % Lymph % (Auto) (25.0-50.0) % [place] % (Auto) (2.0-11.0) % Eos % (Auto) (0.0-4.0) % Baso % (Auto) (0.2-1.2) % Neut # (Auto) (1.8-7.7) x10^3/uL Lymph # (Auto) (1.0-4.8) x10^3/uL [place] # (Auto) (0.0-0.8) x10^3/uL Eos # (Auto) (0.0-0.5) x10^3/uL Baso # (Auto) (0.0-0.2) x10^3/uL Immature Gran # (Auto) (0.00-0.07) x10^3/uL Sodium (136-145) mmol/L Potassium (3.5-5.1) mmol/L Chloride (98-107) mmol/L Carbon Dioxide (21-32) mmol/L Anion Gap (5-15) mmol/L BUN (7-18) mg/dL Creatinine (0.55-1.02) mg/dL Est Cr Clr Drug Dosing mL/min Estimated GFR (MDRD) Glucose (70-99) mg/dL Lactic Acid (0.4-2.0) mmol/L Calcium (8.5-10.1) mg/dL Corrected Calcium (8.5-10.1) mg/dL Total Bilirubin (0.2-1.0) mg/dL AST (15-37) U/L ALT (14-59) U/L Alkaline Phosphatase (46-116) U/L Creatine Kinase (26-192) U/L Troponin I High Sens (<=51) ng/L NT-Pro-B Natriuret Pep (<=125) pg/mL Total Protein (6.4-8.2) g/dL Albumin (3.4-5.0) g/dL Globulin Albumin/Globulin Ratio SARS CoV-2 RNA Rapid DIVYA Negative (NEGATIVE) Meds: Medications Generic Name Dose Route Start Last Admin Trade Name Freq PRN Reason Stop Dose Admin Sodium Chloride 1,000 mls @ 999 mls/hr 01/31/21 19:45 01/31/21 19:50 Normal Saline IV 01/31/21 20:45 999 mls/hr ONETIME ONE Administration Discontinued Medications Generic Name Dose Route Start Last Admin Trade Name Freq PRN Reason Stop Dose Admin Meclizine HCl 25 mg 01/31/21 19:45 01/31/21 20:00 Meclizine 25 Mg Tab PO 01/31/21 19:46 25 mg ONETIME ONE Administration Ondansetron HCl 4 mg 01/31/21 19:45 01/31/21 19:58 Ondansetron 4 Mg/2 Ml Sdv IVPUSH 01/31/21 19:46 4 mg ONETIME ONE Administration Ondansetron HCl 4 mg 01/31/21 20:37 Ondansetron 4 Mg/2 Ml Sdv IVPUSH 01/31/21 20:38 ONETIME ONE Ondansetron HCl 2 packet 01/31/21 20:37 Take Home: Ondansetron 4 Mg Tab.Dis, 2 Tab Pack PO 01/31/21 20:38 ONETIME ONE Departure - Departure Time of Disposition: 19:45 Disposition: Home, Self-Care 01 Condition: Good Clinical Impression: Vertigo, benign paroxysmal Qualifiers: Laterality: unspecified laterality Qualified Code(s): H81.10 - Benign paroxysmal vertigo, unspecified ear - Discharge Information *PRESCRIPTION DRUG MONITORING PROGRAM REVIEWED*: Not Applicable *COPY OF PRESCRIPTION DRUG MONITORING REPORT IN PATIENT EDUARDO: Not Applicable Instructions: Vertigo, [id number], How to Perform the Cyndie Maneuver, Benign Positional Vertigo Referrals: Darlene Mcclendon PA-C [Primary Care Provider] - Forms: ED Department Discharge Additional Instructions: 1. rest 2. increase your water intake 3. Continue all at home medications 4. Activity and diet as tolerated 5. Can take over the counter Tylenol for any pain or discomfort 6. Follow up with PCP if symptoms continue, return, or progress 7. Call with any questions or concerns Sepsis Event Note (ED) - Focused Exam Vital Signs: Vital Signs Temp Pulse Resp BP Pulse Ox 01/31/21 19:40 36.1 C 52 L 14 141/76 H 96 - My Orders Last 24 Hours: My Active Orders 01/31/21 19:45 Sodium Chloride 0.9% [Normal Saline] 1,000 ml IV ONETIME 01/31/21 20:38 Meclizine [Antivert] 100 mg PO ONETIME ONE - Assessment/Plan Last 24 Hours: My Active Orders 01/31/21 19:45 Sodium Chloride 0.9% [Normal Saline] 1,000 ml IV ONETIME 01/31/21 20:38 Meclizine [Antivert] 100 mg PO ONETIME ONE Assessment:: 1. dizziness Plan: 1. Labs completed in the ER. Results reviewed with the patient 2. IV initiated in the emergency department 3. IV fluids provided 4. EKG completed 5. Zofran given in the ER to help with nausea 6. Patient and nursing staff was updated regarding the plan of care 7. Education provided the patient regarding activity, diet, rest, [id number] medication modalities, and follow-up care was provided 8. Patient and family are agreeable to the above plan of care 9. All questions and concerns were addressed with the patient and family prior to discharge
[2021-01-31 20:14] VITALS: PULSE 52
[2021-01-31 20:33] LABS: ANION GAP 14.5 mmol/L (5-15)
[2021-01-31] MEDS ORDERED: Take Home: Ondansetron 4 MG Tab.DIS, 2 Tab Pack PO ONE (20:37)
[2021-01-31] MEDS ORDERED: Take Home: Ondansetron 4 MG Tab.DIS, 2 Tab Pack ONE (21:03)
[2021-01-31 21:23] VITALS: BP 140/78
== END 2021-01-31 21:00 | disposition home or self-care (01) ==
LOC: VM.ED 19:35
DX: H81.10 Benign paroxysmal vertigo, unspecified ear (principal); I10 Essential (primary) hypertension; E11.9 Type 2 diabetes mellitus without complications; E78.00 Pure hypercholesterolemia, unspecified; K21.9 Gastro-esophageal reflux disease without esophagitis; Z88.5 Allergy status to narcotic agent; Z79.899 Other long term (current) drug therapy; Z88.8 Allergy status to other drugs, medicaments and biological substances; Z20.822 Contact with and (suspected) exposure to COVID-19; Z88.6 Allergy status to analgesic agent; Z79.82 Long term (current) use of aspirin; Z79.84 Long term (current) use of oral hypoglycemic drugs
CPT/HCPCS: 80053; 82550; 83605; 83880; 84484; 85025; 93005; 93010; 96374; 96376; 99284; 99284-25; A9270-GY; J2405; J7030; U0002

== ENCOUNTER 2021-07-16 06:57 | Day surgery (SDC) | payer MEDICAID ==
[2021-07-16] MEDS: Lactated Ringers 1,000 ML IV SCH (07:28)
[2021-07-16] MEDS ORDERED: Propofol 200 MG/20 ML SDV ONE ×2 (08:07→08:45)
[2021-07-16] MEDS ORDERED: fentaNYL 100 MCG/2 ML SDV ONE (08:16)
[2021-07-16 09:58] VITALS: BP 135/74; PULSE 55
== END 2021-07-16 11:05 | disposition home or self-care (01) ==
LOC: VM.SDS 06:57
PROVIDERS: ATTEND Family Medicine
DX: Z12.11 Encounter for screening for malignant neoplasm of colon (principal); D12.3 Benign neoplasm of transverse colon; D12.4 Benign neoplasm of descending colon; F41.1 Generalized anxiety disorder; E11.22 Type 2 diabetes mellitus with diabetic chronic kidney disease; N18.1 Chronic kidney disease, stage 1; I12.9 Hypertensive chronic kidney disease with stage 1 through stage 4 chronic kidney disease, or unspecified chronic kidney disease; K21.9 Gastro-esophageal reflux disease without esophagitis; E78.00 Pure hypercholesterolemia, unspecified; F33.1 Major depressive disorder, recurrent, moderate; G43.009 Migraine without aura, not intractable, without status migrainosus; G25.0 Essential tremor; K64.9 Unspecified hemorrhoids; Z83.71 Family history of colonic polyps; Z98.890 Other specified postprocedural states; Z79.899 Other long term (current) drug therapy; Z88.5 Allergy status to narcotic agent; Z88.8 Allergy status to other drugs, medicaments and biological substances; Z87.891 Personal history of nicotine dependence
CPT/HCPCS: 00811; 82947; J2704; J3010; J7120

== ENCOUNTER 2021-11-13 20:57 | Emergency (ER) | payer MEDICARE, MEDICAID ==
[2021-11-13] MEDS: Dexamethasone/Tobramycin 0.1-0.3% Ophth Susp 2.5 ML Bottle EYELF SCH (21:51)
== END 2021-11-13 22:00 | disposition home or self-care (01) ==
LOC: VM.ED 20:57
DX: H11.442 Conjunctival cysts, left eye (principal); E78.00 Pure hypercholesterolemia, unspecified; I10 Essential (primary) hypertension; E11.9 Type 2 diabetes mellitus without complications; Z88.5 Allergy status to narcotic agent; Z88.8 Allergy status to other drugs, medicaments and biological substances; Z79.82 Long term (current) use of aspirin; Z79.899 Other long term (current) drug therapy; Z79.84 Long term (current) use of oral hypoglycemic drugs; Z87.891 Personal history of nicotine dependence
CPT/HCPCS: 99283; A9270

== ENCOUNTER 2022-12-23 06:50 | Day surgery (SDC) | payer MEDICARE, MEDICAID ==
[2022-12-23] MEDS ORDERED: Lactated Ringers 1,000 ML IV SCH (07:00)
[2022-12-23] MEDS ORDERED: Propofol 200 MG/20 ML SDV ONE (08:04)
[2022-12-23] MEDS ORDERED: fentaNYL 100 MCG/2 ML SDV ONE (08:04)
[2022-12-23 09:18] VITALS: BP 145/88; PULSE 92
== END 2022-12-23 10:25 | disposition home or self-care (01) ==
LOC: VM.SDS 06:50
PROVIDERS: ATTEND Family Medicine
DX: Z12.11 Encounter for screening for malignant neoplasm of colon (principal); K64.4 Residual hemorrhoidal skin tags; I10 Essential (primary) hypertension; E78.00 Pure hypercholesterolemia, unspecified; K21.9 Gastro-esophageal reflux disease without esophagitis; F32.A Depression, unspecified; F41.1 Generalized anxiety disorder; E11.9 Type 2 diabetes mellitus without complications; F33.1 Major depressive disorder, recurrent, moderate; R73.01 Impaired fasting glucose; Z86.010 Personal history of colon polyps; Z88.5 Allergy status to narcotic agent; Z88.6 Allergy status to analgesic agent; Z98.890 Other specified postprocedural states; Z79.899 Other long term (current) drug therapy; Z79.82 Long term (current) use of aspirin; Z87.891 Personal history of nicotine dependence
CPT/HCPCS: 82947; G0105; J2704; J3010; J7120

== ENCOUNTER 2024-06-12 06:49 | Emergency (ER) | payer MEDICARE, MEDICAID ==
[2024-06-12] MEDS: Ondansetron 4 MG Tab.DIS PO ONE (07:16)
[2024-06-12] MEDS: Ketorolac 30 MG/ML SDV IM ONE (07:17)
[2024-06-12] MEDS: diphenhydrAMINE 50 MG/ML SDV IM ONE (07:17)
[2024-06-12 07:21] VITALS: BP 134/76; PULSE 90
== END 2024-06-12 07:55 | disposition home or self-care (01) ==
LOC: VM.ED 06:49
DX: G43.901 Migraine, unspecified, not intractable, with status migrainosus (principal); I10 Essential (primary) hypertension; K21.9 Gastro-esophageal reflux disease without esophagitis; E78.00 Pure hypercholesterolemia, unspecified; E11.9 Type 2 diabetes mellitus without complications; Z88.5 Allergy status to narcotic agent; Z88.8 Allergy status to other drugs, medicaments and biological substances; Z79.82 Long term (current) use of aspirin; Z79.899 Other long term (current) drug therapy; Z90.49 Acquired absence of other specified parts of digestive tract; Z90.710 Acquired absence of both cervix and uterus; Z87.891 Personal history of nicotine dependence
CPT/HCPCS: 96372; 99283; A9270; J1200; J1885; J3230